=== PATIENT | male | born 1980 | race Caucasian/White ===

== ENCOUNTER 2017-09-10 10:14 | Emergency (ER) | payer MEDICAID ==
[2017-09-10 10:28] VITALS: BP 124/85
--- NOTE | 2017-09-10 10:52 | ED Physician Documentation ---
History of Present Illness - Stated complaint Stated Complaint: MED REFILL - Chief complaint Chief Complaint: General - History obtained from History obtained from: Patient - History of Present Illness Timing: How many days ago (4) - Additonal information Additional information: 37-year-old schizophrenic male has been incarcerated for approximately 3 years and he returns to the emergency department today after being released and having a 2 week supply of olanzapine. He ran out of this 4 days ago. He does not see a prescriber until the of this month and he is requesting a refill of his olanzapine to last until then. He does have trazodone to last and he does have Coumadin to last. He does not have any particular symptoms does not feel well off of his medication and would like to go back onto the olanzapine. He states that he sleeping well with the olanzapine as long as he takes his trazodone. Review of Systems Constitutional: denies: Fever Eyes: denies: Decreased vision Ears: denies: Ear pain Nose: denies: Congestion Throat: denies: Sore throat Cardiac: denies: Chest pain / pressure, Palpitations Respiratory: denies: Dyspnea, Cough GI: reports: Nausea, Vomiting. denies: Abdominal Pain : denies: Dysuria, Frequency Skin: denies: Rash PD PAST MEDICAL HISTORY - Past Medical History Past Medical History: Yes Cardiovascular: Deep vein thrombosis GI: Hepatitis Psych: Schizophrenia - Past Surgical History Past Surgical History: No - Present Medications Home Medications: Ambulatory Orders Medication Instructions Recorded Confirmed OLANZapine [Olanzapine] 20 mg PO QPM #24 tablet 09/10/17 Olanzapine [Zyprexa] 20 mg PO DAILY 09/10/17 09/10/17 Warfarin Sodium [Coumadin] 4 mg PO 09/10/17 traZODone [Desyrel] 150 mg PO HS 09/10/17 09/10/17 - Allergies Allergies/Adverse Reactions: Allergies Allergy/AdvReac Type Severity Reaction Status Date / Time No Known Drug Allergies Allergy Verified 10/28/14 11:57 - Social History Does the pt smoke?: Yes Smoking Status: Current every day smoker Does the pt drink ETOH?: No Does the pt have substance abuse?: Yes - Immunizations Immunizations are current?: No - POLST Patient has POLST: No PD ED PE NORMAL - Vitals Vital signs reviewed: Yes (tachy ) - General General: Alert and oriented X 3, No acute distress, Well developed/nourished - HEENT HEENT: Atraumatic, PERRL, EOMI - Respiratory Respiratory: No respiratory distress - Derm Derm: Normal color, Warm and dry, No rash - Extremities Extremities: No deformity, No edema - Neuro Neuro: Alert and oriented X 3, 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 We will prescribe the olanzapine to last him until he sees his prescriber in 24 days. - Sepsis Event Vital Signs: Vital Signs - 24 hr 09/10/17 10:25 Temperature 36.2 C L Heart Rate 108 H Respiratory 16 Rate Blood Pressure 124/85 H O2 Saturation 97 Oxygen O2 Source Room air Departure - Departure Disposition: 01 Home, Self Care Clinical Impression: Schizophrenia Qualifiers: Schizophrenia type: unspecified Qualified Code(s): F20.9 - Schizophrenia, unspecified Instructions: ED Schizophrenia General Follow-Up: [facility] [Provider Group] Prescriptions: OLANZapine [Olanzapine] 20 mg PO QPM #24 tablet
== END 2017-09-10 11:11 | disposition home or self-care (01) ==
LOC: ED 10:14
DX: Z76.0 Encounter for issue of repeat prescription (principal); F20.9 Schizophrenia, unspecified; Z86.718 Personal history of other venous thrombosis and embolism; Z79.01 Long term (current) use of anticoagulants; F17.200 Nicotine dependence, unspecified, uncomplicated; R00.0 Tachycardia, unspecified
CPT/HCPCS: 99283

== ENCOUNTER 2017-10-31 16:52 | Emergency (ER) | payer MEDICAID ==
--- NOTE | 2017-10-31 20:32 | ED Physician Documentation ---
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 No: Fever, Hemoptysis, Wheezing, Palpitations, Bilateral edema, Unilateral edema Recently seen: Not recently seen - Additional information Additional information: c/o 2 days of right-sided pleuritic chest pain with DILLARD. Stopped warfarin approximately 2 months ago; he says he ran out of the prescribed medication, but he also says he was instructed to stop the medication once he was out of that prescription. Review of Systems Constitutional: denies: Fever, Chills, Sweats Cardiac: reports: Chest pain / pressure. denies: Palpitations, Pedal edema, Calf pain Respiratory: reports: Dyspnea, Cough. denies: Hemoptysis, Wheezing GI: reports: Reviewed and negative Musculoskeletal: reports: Reviewed and negative PD PAST MEDICAL HISTORY - Past Medical History Past Medical History: Yes Cardiovascular: Pulmonary embolism Respiratory: Pneumonia Neuro: None Endocrine/Autoimmune: None GI: Hepatitis : None HEENT: Other Psych: Bipolar disorder, Schizophrenia Musculoskeletal: None Derm: None - Past Surgical History Past Surgical History: No - Present Medications Home Medications: Ambulatory Orders Medication Instructions Recorded Confirmed OLANZapine [Olanzapine] 20 mg PO QPM #24 tablet 09/10/17 Olanzapine [Zyprexa] 20 mg PO DAILY 09/10/17 09/10/17 Warfarin Sodium [Coumadin] 4 mg PO 09/10/17 traZODone [Desyrel] 150 mg PO HS 09/10/17 09/10/17 Rivaroxaban [Xarelto] 15 mg PO BID #42 tablet 10/31/17 Rivaroxaban [Xarelto] 20 mg PO DAILY #30 tablet 10/31/17 - Allergies Allergies/Adverse Reactions: Allergies Allergy/AdvReac Type Severity Reaction Status Date / Time shellfish derived Allergy Unknown Verified 10/31/17 17:11 - Social History Does the pt smoke?: Yes Smoking Status: Current every day smoker Does the pt drink ETOH?: No Does the pt have substance abuse?: Yes Substance Use and Type: Marijuana, Meth - Immunizations Immunizations are current?: Yes - POLST Patient has POLST: No PD ED PE NORMAL - Vitals Vital signs reviewed: Yes - General General: Alert and oriented X 3, No acute distress, Well developed/nourished - Neck Neck: Supple, no meningeal sign - Cardiac Cardiac: RRR, No murmur, No gallop, No rub - Respiratory Respiratory: No respiratory distress, Clear bilaterally - Abdomen Abdomen: Soft, Non tender - Derm Derm: Normal color, Warm and dry - Extremities Extremities: No edema - Neuro Neuro: Alert and oriented X 3 Results - Vitals Vitals: Vital Signs - 24 hr 10/31/17 10/31/17 10/31/17 17:05 22:17 22:24 Temperature 36.7 C 36.8 C Heart Rate 109 H 88 83 Respiratory 20 24 22 Rate Blood Pressure 109/82 H 107/71 107/71 O2 Saturation 98 96 100 11/01/17 00:13 Temperature Heart Rate 82 Respiratory 16 Rate Blood Pressure 100/73 O2 Saturation 100 Oxygen O2 Source Room air - EKG (time done) No standard instances Rate: Rate (enter#) (114), Tachy Rhythm: Sinus tachycardia [place]: Normal Intervals: Normal AR QRS: Normal Ischemia: Normal ST segments - Labs Labs: Laboratory Tests 10/31/17 10/31/17 10/31/17 20:37 20:37 20:37 WBC 5.7 RBC 5.04 Hgb 15.9 Hct 46.3 MCV 91.8 MCH 31.6 H MCHC 34.4 RDW 13.7 Plt Count 262 MPV 9.3 Neut # (Auto) 3.1 Lymph # (Auto) 1.8 [place] # (Auto) 0.6 Eos # (Auto) 0.1 Baso # (Auto) 0.0 Absolute Nucleated RBC 0.01 Nucleated RBC % 0.1 PT INR APTT Sodium 140 Potassium 3.7 Chloride 104 Carbon Dioxide 27 Anion Gap 9.0 BUN 14 Creatinine 0.9 Estimated GFR (MDRD) 94 Glucose 85 Calcium 9.3 Total Bilirubin 1.3 H AST 23 ALT 19 Alkaline Phosphatase 88 Troponin I < 0.04 Total Protein 7.5 Albumin 4.1 Globulin 3.4 Albumin/Globulin Ratio 1.2 Lipase 36 10/31/17 20:37 WBC RBC Hgb Hct MCV MCH MCHC RDW Plt Count MPV Neut # (Auto) Lymph # (Auto) [place] # (Auto) Eos # (Auto) Baso # (Auto) Absolute Nucleated RBC Nucleated RBC % PT 16.3 H INR 1.5 H APTT 27.2 Sodium Potassium Chloride Carbon Dioxide Anion Gap BUN Creatinine Estimated GFR (MDRD) Glucose Calcium Total Bilirubin AST ALT Alkaline Phosphatase Troponin I Total Protein Albumin Globulin Albumin/Globulin Ratio Lipase - Rads (name of study) CT chest (PE study) Radiology: Prelim report reviewed, See rad report PD MEDICAL DECISION MAKING - ED course Complexity details: reviewed old records, reviewed results, re-evaluated patient , considered differential, d/w patient ED course: ST on EKG, but NSR 80s bpm when I evaluated patient. He is in NAD and speaks in full sentences. As he was recently on warfarin, I gave dose of warfarin as well as SQ lovenox in ED. We subsequently discussed options for disposition, specifically admission vs. discharge. Patient prefers discharge home and he is appropriate for discharge at this time. His vital signs have been stable during ED stay and his PE severity index score puts him in lowest risk category. We then discussed anticoagulation options, and he prefers NOAC. I explained the risk includes lack of reversibility, and he expresses understanding of this but prefers an NOAC over warfarin. - Sepsis Event Vital Signs: Vital Signs - 24 hr 10/31/17 10/31/17 10/31/17 17:05 22:17 22:24 Temperature 36.7 C 36.8 C Heart Rate 109 H 88 83 Respiratory 20 24 22 Rate Blood Pressure 109/82 H 107/71 107/71 O2 Saturation 98 96 100 11/01/17 00:13 Temperature Heart Rate 82 Respiratory 16 Rate Blood Pressure 100/73 O2 Saturation 100 Oxygen O2 Source Room air Departure - Departure Disposition: 01 Home, Self Care Clinical Impression: Pulmonary embolism Condition: Good Instructions: Embolism Pulmonary Dc Follow-Up: [facility] [Provider Group] [facility] [Provider Group] Prescriptions: Rivaroxaban [Xarelto] 15 mg PO BID #42 tablet Rivaroxaban [Xarelto] 20 mg PO DAILY #30 tablet Comments: MAKE SURE TO TAKE THE XARELTO FOLLOWS: TAKE THE 15 MG DOSE TWICE PER DAY FOR 3 WEEKS, THEN TAKE THE 20MG DOSE ONCE PER DAY. Discharge Date/Time: 11/01/17 00:17
[2017-10-31 20:42] LABS: BASOPHILS % (AUTO) 0.7 %; EOSINOPHILS # (AUTO) 0.1 10^3/uL (0.0-0.7); EOSINOPHILS % (AUTO) 1.5 %; HGB - HEMOGLOBIN 15.9 g/dL (14.0-18.0); LYMPHOCYTES # (AUTO) 1.8 10^3/uL (1.5-3.5); LYMPHOCYTES % (AUTO) 32.3 %; MEAN CORPUSCULAR HEMOGLOBIN 31.6 pg (27.0-31.0); MEAN CORPUSCULAR HGB CONC 34.4 g/dL (32.0-36.0); MEAN CORPUSCULAR VOLUME 91.8 fL (80.0-94.0); MEAN PLATELET VOLUME 9.3 fL (7.4-11.4); MONOCYTES # (AUTO) 0.6 10^3/uL (0.0-1.0); MONOCYTES % (AUTO) 10.9 %; NEUTROPHILS # (AUTO) 3.1 10^3/uL (1.5-6.6); NEUTROPHILS % (AUTO) 54.6 %; PLT - PLATELET COUNT 262 10^3/uL (130-450); RED BLOOD COUNT 5.04 10^6/uL (4.70-6.10); RED CELL DISTRIBUTION WIDTH 13.7 % (12.0-15.0); WHITE BLOOD COUNT 5.7 x10^3/uL (4.8-10.8)
[2017-10-31 20:53] LABS: ALBUMIN 4.1 g/dL (3.2-5.5); ALBUMIN/GLOBULIN RATIO 1.2 (1.0-2.2); BILIRUBIN,TOTAL 1.3 mg/dL (0.2-1.0); CALCIUM 9.3 mg/dL (8.5-10.3); CREATININE 0.9 mg/dL (0.6-1.2); TOTAL PROTEIN 7.5 g/dL (6.7-8.2)
[2017-10-31] MEDS ORDERED: IOPAMIDOL-300 100 ML VIAL ONE (20:55)
[2017-10-31 20:56] LABS: INR 1.5 (0.8-1.2); PT - PROTHROMBIN TIME 16.3 secs (9.9-12.6)
[2017-10-31] MEDS ORDERED: IOPAMIDOL-300 100 ML VIAL IVP ONE (21:18)
[2017-10-31] MEDS ORDERED: ENOXAPARIN 80 MG/0.8 ML SYRINGE SUBQ STA (22:11)
[2017-10-31] MEDS ORDERED: WARFARIN 5 MG TABLET PO STA (22:12)
--- NOTE | 2017-10-31 22:16 | CT Report ---
Reason: right CP, dyspnea, h/o PE Procedure Date: 10/31/2017 Accession Number: [id number] / [id number] Procedure: CT - Chest Angio (PE) CPT Code: FULL RESULT: EXAM: CT ANGIOGRAM CHEST EXAM DATE: 10/31/2017 09:21 PM. CLINICAL HISTORY: Chest pain COMPARISON: None. TECHNIQUE: Routine helical imaging was performed through the chest in the pulmonary arterial phase. IV Contrast: ISOVUE 300 80mL. Reconstructions: Coronal 3-D MIP reconstructions.Sagittal and coronal. In accordance with CT protocol optimization, one or more of the following dose reduction techniques were utilized for this exam: automated exposure control, adjustment of mA and/or KV based on patient size, or use of iterative reconstructive technique. FINDINGS: Pulmonary Arteries: Diagnostic quality: Adequate through the segmental arteries. Study is positive for acute pulmonary embolism. Moderate clot burden, with greatest volume at the proximal segmental branch level. Some of the thrombus is eccentric which suggests subacute chronicity. RV/LV ratio is within normal limits. There is no flattening of the interventricular septum. There is some reflux of contrast into the IVC. Lungs/Pleura: The lungs demonstrate no evidence of consolidation or effusion. There is mild bilateral lower lobe bronchiectasis. No evidence of pneumothorax. Mediastinum: Heart size is within normal limits. No enlarged thoracic lymph nodes. Thoracic Aorta: There is no evidence of thoracic aortic dissection or aneurysm. Upper Abdomen: Unremarkable. Other: None. IMPRESSION: Study is positive for acute pulmonary embolism within lateral main pulmonary arteries and proximal segmental branch vessels. Moderate clot burden. No interventricular septal bowing is seen. SANDRAA The above findings were discussed with Bill Henderson by Dr. Nyasia Holbrook at 22:15 hrs on 10/31/17.
[2017-11-01 00:14] VITALS: BP 100/73
== END 2017-11-01 00:17 | disposition home or self-care (01) ==
LOC: ED 16:52
DX: I26.99 Other pulmonary embolism without acute cor pulmonale (principal); F17.200 Nicotine dependence, unspecified, uncomplicated
CPT/HCPCS: 36415; 71275; 80053; 83690; 84484; 85025; 85610; 85730; 93005; 96372; 99284; A9270; J1650; Q9967

== ENCOUNTER 2017-12-04 12:31 | Outpatient (CLI) | payer MEDICAID ==
[2017-12-04 13:21] LABS: BASOPHILS % (AUTO) 0.4 %; EOSINOPHILS # (AUTO) 0.2 10^3/uL (0.0-0.7); EOSINOPHILS % (AUTO) 1.7 %; HGB - HEMOGLOBIN 15.3 g/dL (14.0-18.0); LYMPHOCYTES # (AUTO) 2.1 10^3/uL (1.5-3.5); LYMPHOCYTES % (AUTO) 22.9 %; MEAN CORPUSCULAR HEMOGLOBIN 31.4 pg (27.0-31.0); MEAN CORPUSCULAR HGB CONC 34.7 g/dL (32.0-36.0); MEAN CORPUSCULAR VOLUME 90.4 fL (80.0-94.0); MEAN PLATELET VOLUME 9.2 fL (7.4-11.4); MONOCYTES # (AUTO) 0.6 10^3/uL (0.0-1.0); MONOCYTES % (AUTO) 6.3 %; NEUTROPHILS # (AUTO) 6.2 10^3/uL (1.5-6.6); NEUTROPHILS % (AUTO) 68.7 %; PLT - PLATELET COUNT 218 10^3/uL (130-450); RED BLOOD COUNT 4.88 10^6/uL (4.70-6.10); RED CELL DISTRIBUTION WIDTH 13.9 % (12.0-15.0)
[2017-12-04 13:42] LABS: ALBUMIN 3.7 g/dL (3.2-5.5); ALBUMIN/GLOBULIN RATIO 1.3 (1.0-2.2); ALKALINE PHOSPHATASE 75 IU/L (42-121); ALT ALANINE AMINOTRANSFERASE 37 IU/L (10-60); AST ASPARTATE AMINOTRANSFERASE 25 IU/L (10-42); BILIRUBIN,TOTAL 0.4 mg/dL (0.2-1.0); BUN - BLOOD UREA NITROGEN 6 mg/dL (6-20); CALCIUM 8.8 mg/dL (8.5-10.3); CARBON DIOXIDE - CO2 25 mmol/L (21-32); CHLORIDE 104 mmol/L (101-111); CHOLESTEROL 166 mg/dL; CREATININE 0.5 mg/dL (0.6-1.2); GFR - MDRD 186 (>89); GLUCOSE 106 mg/dL (70-100); HDL CHOLESTEROL 55 mg/dL; LDL CHOLESTEROL,CALCULATED 87 mg/dL; LDL/HDL RATIO 1.6 (<3.6); SODIUM 139 mmol/L (135-145); TOTAL PROTEIN 6.6 g/dL (6.7-8.2); VLDL CHOLESTEROL 24 mg/dL
[2017-12-04 14:17] LABS: THYROID STIMULATING HORMONE 0.49 uIU/mL (0.34-5.60)
[2017-12-04 14:28] LABS: FOLATE 14.17 ng/mL (5.90 - >24.8)
== END 2017-12-04 12:32 | disposition home or self-care (01) ==
LOC: LAB 12:31
PROVIDERS: ATTEND Nurse Practitioner
DX: I27.82 Chronic pulmonary embolism (principal); R53.83 Other fatigue; R03.0 Elevated blood-pressure reading, without diagnosis of hypertension; E55.9 Vitamin D deficiency, unspecified
CPT/HCPCS: 36415; 80053; 80061; 81240; 81599; 82306; 82607; 82746; 83721; 84443; 85025; 85240; 85303; 85305; 85306; 85613; 85730; 86146; 86147

== ENCOUNTER 2017-12-28 14:27 | Emergency (ER) | payer MEDICAID ==
[2017-12-28 14:34] VITALS: BP 123/75
[2017-12-28] MEDS ORDERED: SULFAMETH/TRIMETH DS 800/160 MG TABLET PO STA (14:51)
--- NOTE | 2017-12-28 14:55 | ED Physician Documentation ---
PD HPI HEENT - Stated complaint Stated Complaint: SOA, EAR PX, BLISTERS ON FEET, HANDS BURNING - Chief complaint Chief Complaint: Resp - History obtained from History obtained from: Patient - History of Present Illness Timing - onset: Other (37-year-old gentleman with history of PEs and psychosis on meds including Xarelto, 3 days of bilateral ear burning, cough and hands and feet burning. He also has a runny nose and a sore throat.) Review of Systems Constitutional: denies: Fever, Chills Ears: reports: Ear pain Nose: reports: Rhinorrhea / runny nose, Congestion Throat: reports: Sore throat Cardiac: denies: Chest pain / pressure, Palpitations Respiratory: reports: Cough. denies: Dyspnea PD PAST MEDICAL HISTORY - Past Medical History Cardiovascular: Pulmonary embolism Respiratory: Pneumonia Neuro: None Endocrine/Autoimmune: None GI: Hepatitis : None HEENT: Other Psych: Bipolar disorder, Schizophrenia Musculoskeletal: None Derm: None - Past Surgical History Past Surgical History: No - Present Medications Home Medications: Ambulatory Orders Medication Instructions Recorded Confirmed OLANZapine [Olanzapine] 20 mg PO QPM #24 tablet 09/10/17 Olanzapine [Zyprexa] 20 mg PO DAILY 09/10/17 09/10/17 Warfarin Sodium [Coumadin] 4 mg PO 09/10/17 traZODone [Desyrel] 150 mg PO HS 09/10/17 09/10/17 Rivaroxaban [Xarelto] 15 mg PO BID #42 tablet 10/31/17 Rivaroxaban [Xarelto] 20 mg PO DAILY #30 tablet 10/31/17 Sulfamethoxazole/Trimethoprim 1 each PO BID #20 tablet 12/28/17 [Sulfamethoxazole-Tmp Ds Tablet] - Allergies Allergies/Adverse Reactions: Allergies Allergy/AdvReac Type Severity Reaction Status Date / Time shellfish derived Allergy Unknown Verified 12/28/17 14:33 - Social History Does the pt smoke?: Yes Smoking Status: Current every day smoker Does the pt drink ETOH?: No Does the pt have substance abuse?: Yes - Immunizations Immunizations are current?: Yes - POLST Patient has POLST: No PD ED PE NORMAL - Vitals Vital signs reviewed: Yes - General General: Alert and oriented X 3, No acute distress - HEENT HEENT: Other (The TMs and oropharynx are normal, he does have crusted lesions on the tragus of both ears, left greater than right consistent with probably cutaneous staph. The left tragus was cultured during exam.) - Neck Neck: Supple, no meningeal sign, No bony TTP - Cardiac Cardiac: RRR, No murmur - Respiratory Respiratory: No respiratory distress, Clear bilaterally - Abdomen Abdomen: Non tender - Derm Derm: Other (He has some crusted over and scratched at lesions on the forearms and upper back.) - Neuro Neuro: Alert and oriented X 3, Normal speech Results - Vitals Vitals: Vital Signs - 24 hr 12/28/17 14:31 Temperature 36.8 C Heart Rate 103 H Respiratory 16 Rate Blood Pressure 123/75 O2 Saturation 99 Oxygen O2 Source Room air PD MEDICAL DECISION MAKING - ED course ED course: 37-year-old gent with history of schizophrenia and PEs under treatment with Xarelto presents with what looks like cutaneous staph, left tragus was cultured and he was put on Bactrim. Departure - Departure Disposition: 01 Home, Self Care Clinical Impression: Staph skin infection Condition: Good Record reviewed to determine appropriate education?: Yes Instructions: Imp[place]igo Prescriptions: Sulfamethoxazole/Trimethoprim [Sulfamethoxazole-Tmp Ds Tablet] 1 each PO BID #20 tablet Comments: Call your doctor to arrange a follow-up appointment, make the next available appointment. In the interim, return anytime if worse or if new symptoms develop. We are performing a wound culture, the results should be done in 48-72 hours. If antibiotic change is necessary we will call you. Return if worse in the meantime, especially if you develop increased pain, fevers, cannot keep down the medication. Otherwise follow-up with your physician in approximately 2-3 days.
== END 2017-12-28 15:02 | disposition home or self-care (01) ==
LOC: ED 14:27
DX: B95.8 Unspecified staphylococcus as the cause of diseases classified elsewhere (principal); L08.89 Other specified local infections of the skin and subcutaneous tissue; K75.9 Inflammatory liver disease, unspecified; Z86.711 Personal history of pulmonary embolism; F17.200 Nicotine dependence, unspecified, uncomplicated
CPT/HCPCS: 87070; 87205; 99283; A9270

== ENCOUNTER 2018-01-18 18:13 | Emergency (ER) | payer MEDICAID ==
[2018-01-18 18:54] LABS: BASOPHILS % (AUTO) 0.6 %; EOSINOPHILS # (AUTO) 0.1 10^3/uL (0.0-0.7); EOSINOPHILS % (AUTO) 1.6 %; HGB - HEMOGLOBIN 14.7 g/dL (14.0-18.0); LYMPHOCYTES # (AUTO) 1.6 10^3/uL (1.5-3.5); LYMPHOCYTES % (AUTO) 38.6 %; MEAN CORPUSCULAR HEMOGLOBIN 31.9 pg (27.0-31.0); MEAN CORPUSCULAR HGB CONC 34.1 g/dL (32.0-36.0); MEAN CORPUSCULAR VOLUME 93.6 fL (80.0-94.0); MEAN PLATELET VOLUME 9.3 fL (7.4-11.4); MONOCYTES # (AUTO) 0.4 10^3/uL (0.0-1.0); MONOCYTES % (AUTO) 10.2 %; PLT - PLATELET COUNT 202 10^3/uL (130-450); RED BLOOD COUNT 4.59 10^6/uL (4.70-6.10); RED CELL DISTRIBUTION WIDTH 13.9 % (12.0-15.0)
[2018-01-18 19:02] LABS: ACETAMINOPHEN < 10 ug/mL (10-30); ALBUMIN 4.2 g/dL (3.2-5.5); ALBUMIN/GLOBULIN RATIO 1.6 (1.0-2.2); ALKALINE PHOSPHATASE 60 IU/L (42-121); ALT ALANINE AMINOTRANSFERASE 21 IU/L (10-60); AST ASPARTATE AMINOTRANSFERASE 29 IU/L (10-42); BILIRUBIN,TOTAL 1.2 mg/dL (0.2-1.0); BUN - BLOOD UREA NITROGEN 11 mg/dL (6-20); CALCIUM 8.9 mg/dL (8.5-10.3); CARBON DIOXIDE - CO2 24 mmol/L (21-32); CHLORIDE 105 mmol/L (101-111); CREATININE 0.7 mg/dL (0.6-1.2); GFR - MDRD 126 (>89); GLUCOSE 142 mg/dL (70-100); LIPASE 33 U/L (22-51); SALICYLATE < 6.0 mg/dL; SODIUM 136 mmol/L (135-145); TOTAL PROTEIN 6.8 g/dL (6.7-8.2)
[2018-01-18 19:09] LABS: PLATELET ESTIMATE, MANUAL NORMAL (130-450,000) (NORMAL); PLATELET MORPHOLOGY 1+ GIANT PLATELETS (NORMAL); RBC MORPHOLOGY (MULTIPLE) NORMAL APPEARANCE (NORMAL)
[2018-01-18] MEDS ORDERED: OLANZapine ODT 5 MG TABLET TL ONE (19:36)
--- NOTE | 2018-01-18 19:38 | ED Physician Documentation ---
PD HPI MHE - Stated complaint Stated Complaint: MHE - Chief complaint Chief Complaint: MHE - History obtained from History obtained from: Patient, Family - History of Present Illness Primary symptom: Psychosis, Off meds Timing - onset: How many days ago (3) Pain level max: 0 Pain level now: 0 Similar symptoms before: Diagnosis (schizophrenia) Recently seen: Not recently seen - Additional information Additional information: Patient is a 37-year-old male who presents to the emergency department with increasing hallucinations and agitated behavior at home. He states that he last used amphetamines approximately 36 hours ago. Family states he is becoming more agitated. Stopped his Zyprexa approximately 3 days ago. Has been hospitalized in the past for schizophrenia. Review of Systems Unable to obtain: Uncooperative PD PAST MEDICAL HISTORY - Past Medical History Past Medical History: Yes Cardiovascular: Pulmonary embolism Respiratory: Pneumonia Neuro: None Endocrine/Autoimmune: None GI: Hepatitis : None HEENT: Other Psych: Bipolar disorder, Schizophrenia Musculoskeletal: None Derm: None - Past Surgical History Past Surgical History: No - Present Medications Home Medications: Ambulatory Orders Medication Instructions Recorded Confirmed OLANZapine [Olanzapine] 20 mg PO QPM #24 tablet 09/10/17 01/14/18 traZODone [Desyrel] 150 mg PO HS 09/10/17 01/14/18 Rivaroxaban [Xarelto] 20 mg PO DAILY #30 tablet 10/31/17 01/14/18 - Allergies Allergies/Adverse Reactions: Allergies Allergy/AdvReac Type Severity Reaction Status Date / Time shellfish derived Allergy Unknown Verified 01/18/18 18:29 - Social History Does the pt smoke?: Yes Smoking Status: Current every day smoker Does the pt drink ETOH?: No Does the pt have substance abuse?: Yes - Immunizations Immunizations are current?: Yes - POLST Patient has POLST: No PD ED PE NORMAL - Vitals Vital signs reviewed: Yes - General General: Other (alert, pacing, pressured speech) - HEENT HEENT: PERRL, Moist mucous membranes, Pharynx benign - Neck Neck: Supple, no meningeal sign - Cardiac Cardiac: RRR, Strong equal pulses - Respiratory Respiratory: No respiratory distress, Clear bilaterally - Abdomen Abdomen: Soft, Non tender, Non distended - Derm Derm: Warm and dry - Extremities Extremities: No edema - Neuro Neuro: Alert and oriented X 3 - Psych Psych: Normal mood, Normal affect Results - Vitals Vitals: Vital Signs - 24 hr 01/18/18 18:26 Temperature 36.4 C L Heart Rate 89 Respiratory 16 Rate Blood Pressure 128/83 H O2 Saturation 99 Oxygen O2 Source Room air - EKG (time done) 2109 Rate: Rate (enter#) (89) Rhythm: NSR [place]: Normal Intervals: Normal CA QRS: Normal Ischemia: Normal ST segments - Labs Labs: Laboratory Tests 01/18/18 01/18/18 01/18/18 18:44 18:44 18:44 WBC 4.0 L RBC 4.59 L Hgb 14.7 Hct 43.0 MCV 93.6 MCH 31.9 H MCHC 34.1 RDW 13.9 Plt Count 202 MPV 9.3 Neut # (Auto) 2.0 Lymph # (Auto) 1.6 [place] # (Auto) 0.4 Eos # (Auto) 0.1 Baso # (Auto) 0.0 Absolute Nucleated RBC 0.01 Nucleated RBC % 0.1 Manual Slide Review Indicated Platelet Estimate NORMAL (130-450,000) Platelet Morphology 1+ GIANT PLATELETS RBC Morph Micro Appear NORMAL APPEARANCE Sodium 136 Potassium 3.1 L Chloride 105 Carbon Dioxide 24 Anion Gap 7.0 BUN 11 Creatinine 0.7 Estimated GFR (MDRD) 126 Glucose 142 H Calcium 8.9 Total Bilirubin 1.2 H AST 29 ALT 21 Alkaline Phosphatase 60 Total Protein 6.8 Albumin 4.2 Globulin 2.6 Albumin/Globulin Ratio 1.6 Lipase 33 TSH 0.42 Urine Color Urine Clarity Urine pH Ur Specific [place] Urine Protein Urine Glucose (UA) Urine Ketones Urine Occult Blood Urine Nitrite Urine Bilirubin Urine Urobilinogen Ur Leukocyte Esterase Ur Microscopic Review Urine Culture Comments Salicylates < 6.0 Urine Opiates Screen Ur Oxycodone Screen Urine Methadone Screen Ur Propoxyphene Screen Acetaminophen < 10 L Ur Barbiturates Screen Ur Tricyclics Screen Ur Phencyclidine Scrn Ur Amphetamine Screen U Methamphetamines Scrn U Benzodiazepines Scrn Urine Cocaine Screen U Cannabinoids Screen Ethyl Alcohol < 5.0 01/18/18 20:44 WBC RBC Hgb Hct MCV MCH MCHC RDW Plt Count MPV Neut # (Auto) Lymph # (Auto) [place] # (Auto) Eos # (Auto) Baso # (Auto) Absolute Nucleated RBC Nucleated RBC % Manual Slide Review Platelet Estimate Platelet Morphology RBC Morph Micro Appear Sodium Potassium Chloride Carbon Dioxide Anion Gap BUN Creatinine Estimated GFR (MDRD) Glucose Calcium Total Bilirubin AST ALT Alkaline Phosphatase Total Protein Albumin Globulin Albumin/Globulin Ratio Lipase TSH Urine Color YELLOW Urine Clarity CLEAR Urine pH 8.0 H Ur Specific [place] 1.015 Urine Protein NEGATIVE Urine Glucose (UA) NEGATIVE Urine Ketones 15 H Urine Occult Blood NEGATIVE Urine Nitrite NEGATIVE Urine Bilirubin NEGATIVE Urine Urobilinogen 1 (NORMAL) Ur Leukocyte Esterase NEGATIVE Ur Microscopic Review NOT INDICATED Urine Culture Comments NOT INDICATED Salicylates Urine Opiates Screen NEGATIVE Ur Oxycodone Screen NEGATIVE Urine Methadone Screen NEGATIVE Ur Propoxyphene Screen NEGATIVE Acetaminophen Ur Barbiturates Screen NEGATIVE Ur Tricyclics Screen NEGATIVE Ur Phencyclidine Scrn NEGATIVE Ur Amphetamine Screen POSITIVE H U Methamphetamines Scrn POSITIVE H U Benzodiazepines Scrn NEGATIVE Urine Cocaine Screen NEGATIVE U Cannabinoids Screen POSITIVE H Ethyl Alcohol PD MEDICAL DECISION MAKING - ED course Complexity details: reviewed results, re-evaluated patient, considered differential, d/w patient, d/w family ED course: Patient is a 37-year-old schizophrenic male who appears decompensated today. Having active hallucinations. There are young children at the house where he is staying, family is concerned that he may injure them. He states he does not feel homicidal or suicidal, but is not well kept and does appear to have difficulty keeping his thoughts in line. He is having significant internal stimuli and pacing around the room. He is continually trying to leave the emergency department. Family is redirecting him. They state that his last hospitalization was approximately 3 years ago. Patient is medically clear for psychiatric care. [facility] was contacted and the [facility] dispatched. [facility]. This document was made in part using voice recognition software. While efforts are made to proofread this document, sound alike and grammatical errors may occur. Patient did take Zyprexa while in the emergency department Departure - Departure Clinical Impression: Methamphetamine abuse, Marijuana use Schizophrenia Qualifiers: Schizophrenia type: unspecified Qualified Code(s): F20.9 - Schizophrenia, unspecified Condition: Stable
[2018-01-18 20:47] LABS: MUDS CUTOFF CONCENTRATIONS CUTOFF CONC BELOW:
[2018-01-18 20:49] LABS: BILIRUBIN,URINE NEGATIVE (NEGATIVE); GLUCOSE, URINE (UA) NEGATIVE (NEGATIVE); KETONES,URINE (UA) 15 mg/dL (NEGATIVE); LEUKOCYTE ESTERASE, URINE NEGATIVE (NEGATIVE); NITRITE,URINE NEGATIVE (NEGATIVE); OCCULT BLOOD,URINE NEGATIVE (NEGATIVE); PROTEIN,URINE NEGATIVE (NEGATIVE); UROBILINOGEN,URINE 1 (NORMAL) E.U./dL (NORMAL)
[2018-01-18 20:55] LABS: CLARITY,URINE CLEAR (CLEAR)
[2018-01-18 20:58] LABS: COCAINE SCREEN URINE NEGATIVE (NEGATIVE)
[2018-01-18 20:59] LABS: AMPHETAMINE SCREEN,URINE POSITIVE (NEGATIVE); BENZODIAZEPINES SCREEN, URINE NEGATIVE (NEGATIVE); METHADONE SCREEN, URINE NEGATIVE (NEGATIVE); METHAMPHETAMINES SCREEN, URINE POSITIVE (NEGATIVE); OPIATE SCREEN, URINE NEGATIVE (NEGATIVE); OXYCODONE SCREEN, URINE NEGATIVE (NEGATIVE); PROPOXYPHENE SCREEN, URINE NEGATIVE (NEGATIVE); TRICYCLIC ANTIDEPRESSANT,URINE NEGATIVE (NEGATIVE)
[2018-01-19] MEDS ORDERED: POTASSIUM BICARB 25 MEQ TABLET PO STA (03:27)
--- NOTE | 2018-01-19 05:14 | ED Physician Documentation ---
PD HPI MHE - Stated complaint Stated Complaint: MHE - Chief complaint Chief Complaint: MHE - History of Present Illness Contributing factors: Off meds Similar symptoms before: Diagnosis (schizophrenia) Recently seen: Emergency Dept (one month ago for skin infection) PD PAST MEDICAL HISTORY - Past Medical History Past Medical History: Yes Cardiovascular: Pulmonary embolism Respiratory: Pneumonia Neuro: None Endocrine/Autoimmune: None GI: Hepatitis : None HEENT: Other Psych: Bipolar disorder, Schizophrenia Musculoskeletal: None Derm: None - Past Surgical History Past Surgical History: No - Present Medications Home Medications: Ambulatory Orders Medication Instructions Recorded Confirmed OLANZapine [Olanzapine] 20 mg PO QPM #24 tablet 09/10/17 01/14/18 traZODone [Desyrel] 150 mg PO HS 09/10/17 01/14/18 Rivaroxaban [Xarelto] 20 mg PO DAILY #30 tablet 10/31/17 01/14/18 - Allergies Allergies/Adverse Reactions: Allergies Allergy/AdvReac Type Severity Reaction Status Date / Time shellfish derived Allergy Unknown Verified 01/18/18 18:29 - Social History Does the pt smoke?: Yes Smoking Status: Current every day smoker Does the pt drink ETOH?: No Does the pt have substance abuse?: Yes - Immunizations Immunizations are current?: Yes - POLST Patient has POLST: No Results - Vitals Vitals: Vital Signs - 24 hr 01/18/18 01/18/18 18:26 22:53 Temperature 36.4 C L 36.4 C L Heart Rate 89 101 H Respiratory 16 18 Rate Blood Pressure 128/83 H 113/65 O2 Saturation 99 97 Oxygen O2 Source Room air - EKG (time done) 0438 Rate: Rate (enter#) (66) Ischemia: Non specific changes Compare to prior EKG: Changed from prior EKG (SPT 01-18-18 the QTc has changed from 476 ot 410) Computer interpretation: Agree with computer - Labs Labs: Laboratory Tests 01/18/18 01/18/18 01/18/18 18:44 18:44 18:44 WBC 4.0 L RBC 4.59 L Hgb 14.7 Hct 43.0 MCV 93.6 MCH 31.9 H MCHC 34.1 RDW 13.9 Plt Count 202 MPV 9.3 Neut # (Auto) 2.0 Lymph # (Auto) 1.6 [place] # (Auto) 0.4 Eos # (Auto) 0.1 Baso # (Auto) 0.0 Absolute Nucleated RBC 0.01 Nucleated RBC % 0.1 Manual Slide Review Indicated Platelet Estimate NORMAL (130-450,000) Platelet Morphology 1+ GIANT PLATELETS RBC Morph Micro Appear NORMAL APPEARANCE Sodium 136 Potassium 3.1 L Chloride 105 Carbon Dioxide 24 Anion Gap 7.0 BUN 11 Creatinine 0.7 Estimated GFR (MDRD) 126 Glucose 142 H Calcium 8.9 Total Bilirubin 1.2 H AST 29 ALT 21 Alkaline Phosphatase 60 Total Protein 6.8 Albumin 4.2 Globulin 2.6 Albumin/Globulin Ratio 1.6 Lipase 33 TSH 0.42 Urine Color Urine Clarity Urine pH Ur Specific [place] Urine Protein Urine Glucose (UA) Urine Ketones Urine Occult Blood Urine Nitrite Urine Bilirubin Urine Urobilinogen Ur Leukocyte Esterase Ur Microscopic Review Urine Culture Comments Salicylates < 6.0 Urine Opiates Screen Ur Oxycodone Screen Urine Methadone Screen Ur Propoxyphene Screen Acetaminophen < 10 L Ur Barbiturates Screen Ur Tricyclics Screen Ur Phencyclidine Scrn Ur Amphetamine Screen U Methamphetamines Scrn U Benzodiazepines Scrn Urine Cocaine Screen U Cannabinoids Screen Ethyl Alcohol < 5.0 01/18/18 20:44 WBC RBC Hgb Hct MCV MCH MCHC RDW Plt Count MPV Neut # (Auto) Lymph # (Auto) [place] # (Auto) Eos # (Auto) Baso # (Auto) Absolute Nucleated RBC Nucleated RBC % Manual Slide Review Platelet Estimate Platelet Morphology RBC Morph Micro Appear Sodium Potassium Chloride Carbon Dioxide Anion Gap BUN Creatinine Estimated GFR (MDRD) Glucose Calcium Total Bilirubin AST ALT Alkaline Phosphatase Total Protein Albumin Globulin Albumin/Globulin Ratio Lipase TSH Urine Color YELLOW Urine Clarity CLEAR Urine pH 8.0 H Ur Specific [place] 1.015 Urine Protein NEGATIVE Urine Glucose (UA) NEGATIVE Urine Ketones 15 H Urine Occult Blood NEGATIVE Urine Nitrite NEGATIVE Urine Bilirubin NEGATIVE Urine Urobilinogen 1 (NORMAL) Ur Leukocyte Esterase NEGATIVE Ur Microscopic Review NOT INDICATED Urine Culture Comments NOT INDICATED Salicylates Urine Opiates Screen NEGATIVE Ur Oxycodone Screen NEGATIVE Urine Methadone Screen NEGATIVE Ur Propoxyphene Screen NEGATIVE Acetaminophen Ur Barbiturates Screen NEGATIVE Ur Tricyclics Screen NEGATIVE Ur Phencyclidine Scrn NEGATIVE Ur Amphetamine Screen POSITIVE H U Methamphetamines Scrn POSITIVE H U Benzodiazepines Scrn NEGATIVE Urine Cocaine Screen NEGATIVE U Cannabinoids Screen POSITIVE H Ethyl Alcohol PD MEDICAL DECISION MAKING - ED course Complexity details: reviewed old records, reviewed results, considered differential ED course: 37 y/o schizophrenic male well known to the ED has decompensated after being off of his zyprexa for 3 days. He is not able to care for himself and required the assistance of his mother to get dressed today. He is evaluated in the ED by Dr. Mederos and the DCR is consulted, comes to the ED and detains the patient to [facility]. He is administered zyprexa this morning and he is administered potassium bicarbonate 50mEq. Dr. Banda is accepting. Departure - Departure Disposition: [facility] H[facility]/Unit DC/Xfer Clinical Impression: Methamphetamine abuse, Marijuana use Schizophrenia Qualifiers: Schizophrenia type: unspecified Qualified Code(s): F20.9 - Schizophrenia, unspecified Condition: Stable
--- NOTE | 2018-01-19 09:25 | ED Physician Documentation ---
ED Addendum - Addendum Addendum: 01/19/18 09:24 COBRA forms not complete - chart accessed to complete paperwork for transport
[2018-01-19 09:47] VITALS: BP 116/78
== END 2018-01-19 09:57 ==
LOC: ED 18:13
DX: F15.10 Other stimulant abuse, uncomplicated (principal); F20.9 Schizophrenia, unspecified; T43.596A Underdosing of other antipsychotics and neuroleptics, initial encounter; F17.200 Nicotine dependence, unspecified, uncomplicated
CPT/HCPCS: 36415; 80053; 80306; 80307; 80320; 80329; 81003; 83690; 84443; 85025; 93005; 99284; 99285; A9270; 81001; 87086

== ENCOUNTER 2018-03-20 17:40 | Emergency (ER) | payer MEDICAID ==
[2018-03-20 17:58] VITALS: BP 125/79
== END 2018-03-20 19:25 | disposition left against medical advice (07) ==
LOC: ED 17:40
DX: Z76.0 Encounter for issue of repeat prescription (principal); Z53.21 Procedure and treatment not carried out due to patient leaving prior to being seen by health care provider

== ENCOUNTER 2018-04-30 11:39 | Emergency (ER) | payer MEDICAID ==
[2018-04-30 11:52] VITALS: BP 122/83
[2018-04-30 12:17] LABS: BASOPHILS % (AUTO) 0.5 %; EOSINOPHILS # (AUTO) 0.2 10^3/uL (0.0-0.7); EOSINOPHILS % (AUTO) 2.6 %; HGB - HEMOGLOBIN 14.9 g/dL (14.0-18.0); LYMPHOCYTES # (AUTO) 1.4 10^3/uL (1.5-3.5); LYMPHOCYTES % (AUTO) 22.6 %; MEAN CORPUSCULAR HEMOGLOBIN 32.2 pg (27.0-31.0); MEAN PLATELET VOLUME 8.4 fL (7.4-11.4); MONOCYTES # (AUTO) 0.6 10^3/uL (0.0-1.0); MONOCYTES % (AUTO) 9.5 %; NEUTROPHILS % (AUTO) 64.8 %; PLT - PLATELET COUNT 212 10^3/uL (130-450); RED BLOOD COUNT 4.61 10^6/uL (4.70-6.10); WHITE BLOOD COUNT 6.2 x10^3/uL (4.8-10.8)
[2018-04-30 12:31] LABS: ACETAMINOPHEN < 10 ug/mL (10-30); ALBUMIN 4.3 g/dL (3.2-5.5); ALBUMIN/GLOBULIN RATIO 1.5 (1.0-2.2); ALKALINE PHOSPHATASE 63 IU/L (42-121); ALT ALANINE AMINOTRANSFERASE 18 IU/L (10-60); AST ASPARTATE AMINOTRANSFERASE 23 IU/L (10-42); BILIRUBIN,TOTAL 1.6 mg/dL (0.2-1.0); BUN - BLOOD UREA NITROGEN 15 mg/dL (6-20); CALCIUM 9.1 mg/dL (8.5-10.3); CARBON DIOXIDE - CO2 25 mmol/L (21-32); CHLORIDE 100 mmol/L (101-111); CREATININE 0.7 mg/dL (0.6-1.2); GFR - MDRD 126 (>89); GLUCOSE 85 mg/dL (70-100); LIPASE 30 U/L (22-51); SALICYLATE < 6.0 mg/dL; SODIUM 136 mmol/L (135-145); TOTAL PROTEIN 7.1 g/dL (6.7-8.2)
[2018-04-30] MEDS ORDERED: LORazepam 0.5 MG TABLET PO STA (12:56)
--- NOTE | 2018-04-30 13:00 | ED Physician Documentation ---
PD HPI MHE - Stated complaint Stated Complaint: MHE - Chief complaint Chief Complaint: MHE - History obtained from History obtained from: Patient - History of Present Illness Primary symptom: Other (This is a 37-year-old gentleman with history of schizophrenia and pulmonary emboli on Xarelto who is been using methamphetamines, both smoking and injecting. He feels like he is a danger to himself and is hallucinating. I guess he called [place] prior to arrival and they have a bed but needed him to come here for medical clearance prior to acceptance.) Review of Systems Ten Systems: 10 systems reviewed and negative Constitutional: denies: Fever, Chills Eyes: reports: Reviewed and negative Cardiac: reports: Reviewed and negative PD PAST MEDICAL HISTORY - Past Medical History Past Medical History: Yes Cardiovascular: Pulmonary embolism Respiratory: Pneumonia Neuro: None Endocrine/Autoimmune: None GI: Hepatitis : None HEENT: Other Psych: Bipolar disorder, Schizophrenia Musculoskeletal: None Derm: None - Past Surgical History Past Surgical History: No - Present Medications Home Medications: Ambulatory Orders Medication Instructions Recorded Confirmed traZODone [Desyrel] 150 mg PO HS 09/10/17 04/30/18 Rivaroxaban [Xarelto] 20 mg PO DAILY #30 tablet 10/31/17 04/30/18 Risperidone [Risperidone Odt] 3 mg PO DAILY 04/30/18 04/30/18 - Allergies Allergies/Adverse Reactions: Allergies Allergy/AdvReac Type Severity Reaction Status Date / Time shellfish derived Allergy Unknown Verified 04/30/18 11:53 - Social History Does the pt smoke?: Yes Smoking Status: Current every day smoker Does the pt drink ETOH?: No Does the pt have substance abuse?: Yes Substance Use and Type: Meth - Family History Family history: reports: Non contributory - Immunizations Immunizations are current?: Yes - POLST Patient has POLST: No PD ED PE NORMAL - Vitals Vital signs reviewed: Yes - General General: Other (He appears to be responding to external stimuli and is slightly agitated and tangential.) - HEENT HEENT: PERRL, EOMI - Neck Neck: Supple, no meningeal sign, No bony TTP - Cardiac Cardiac: RRR, No murmur - Respiratory Respiratory: No respiratory distress, Clear bilaterally - Abdomen Abdomen: Soft, Non tender - Back Back: No CVA TTP, No spinal TTP - Extremities Extremities: No edema, No calf tenderness / cord - Neuro Neuro: Alert and oriented X 3, Normal speech Results - Vitals Vitals: Vital Signs - 24 hr 04/30/18 11:48 Temperature 36.0 C L Heart Rate 107 H Respiratory 14 Rate Blood Pressure 122/83 H O2 Saturation 99 Oxygen O2 Source Room air - Labs Labs: Laboratory Tests 04/30/18 04/30/18 04/30/18 12:09 12:09 12:09 WBC 6.2 RBC 4.61 L Hgb 14.9 Hct 42.4 MCV 92.0 MCH 32.2 H MCHC 35.0 RDW 13.0 Plt Count 212 MPV 8.4 Neut # (Auto) 4.0 Lymph # (Auto) 1.4 L [place] # (Auto) 0.6 Eos # (Auto) 0.2 Baso # (Auto) 0.0 Absolute Nucleated RBC 0.00 Nucleated RBC % 0.1 Sodium 136 Potassium 3.3 L Chloride 100 L Carbon Dioxide 25 Anion Gap 11.0 BUN 15 Creatinine 0.7 Estimated GFR (MDRD) 126 Glucose 85 Calcium 9.1 Total Bilirubin 1.6 H AST 23 ALT 18 Alkaline Phosphatase 63 Total Protein 7.1 Albumin 4.3 Globulin 2.8 Albumin/Globulin Ratio 1.5 Lipase 30 TSH 1.16 Salicylates < 6.0 Acetaminophen < 10 L Ethyl Alcohol < 5.0 PD MEDICAL DECISION MAKING - ED course ED course: This is a 37-year-old gentleman who presents with anxiety and hallucinations in the setting of underlying schizophrenia and methamphetamine abuse. He was pending social work consultation and I was notified that he had ambulated out of the emergency department. Departure - Departure Disposition: ED [place] Clinical Impression: Methamphetamine abuse Discharge Date/Time: 04/30/18 16:31
== END 2018-04-30 16:31 | disposition left against medical advice (07) ==
LOC: ED 11:39
DX: F15.90 Other stimulant use, unspecified, uncomplicated (principal); F17.200 Nicotine dependence, unspecified, uncomplicated; Z86.711 Personal history of pulmonary embolism; Z79.01 Long term (current) use of anticoagulants
CPT/HCPCS: 36415; 80053; 80306; 80307; 80320; 80329; 81001; 81003; 83690; 84443; 85025; 87086; 99282; 99283

== ENCOUNTER 2018-05-06 14:56 | Emergency (ER) | payer MEDICAID ==
[2018-05-06 15:07] VITALS: BP 111/70
--- NOTE | 2018-05-06 15:31 | ED Physician Documentation ---
PD HPI URI - Stated complaint Stated Complaint: THROAT PX - Chief complaint Chief Complaint: Heent - History obtained from History obtained from: Patient - History of Present Illness Timing - onset: Other (Sick for 4 days with runny nose, sore throat, cough with mild clear production and low-grade fevers up to 99.) Review of Systems Constitutional: reports: Chills, Fatigue Ears: denies: Ear pain Nose: reports: Rhinorrhea / runny nose, Congestion. denies: Sinus pressure / pain Throat: reports: Sore throat. denies: Oral lesions / sores Respiratory: reports: Cough. denies: Dyspnea PD PAST MEDICAL HISTORY - Past Medical History Cardiovascular: Pulmonary embolism Respiratory: Pneumonia Neuro: None Endocrine/Autoimmune: None GI: Hepatitis : None HEENT: Other Psych: Bipolar disorder, Schizophrenia Musculoskeletal: None Derm: None - Past Surgical History Past Surgical History: No - Present Medications Home Medications: Ambulatory Orders Medication Instructions Recorded Confirmed traZODone [Desyrel] 150 mg PO HS 09/10/17 04/30/18 Rivaroxaban [Xarelto] 20 mg PO DAILY #30 tablet 10/31/17 04/30/18 Risperidone [Risperidone Odt] 3 mg PO DAILY 04/30/18 04/30/18 Guaifenesin/Pseudoephedrne HCl 1 each PO BID PRN #20 tab.er.12h 05/06/18 [Mucinex D ER 600-60 mg Tablet] Ibuprofen [Motrin] 800 mg PO Q8H PRN #30 tablet 05/06/18 - Allergies Allergies/Adverse Reactions: Allergies Allergy/AdvReac Type Severity Reaction Status Date / Time shellfish derived Allergy Unknown Verified 04/30/18 11:53 - Social History Does the pt smoke?: Yes Smoking Status: Current every day smoker Does the pt drink ETOH?: No Does the pt have substance abuse?: Yes - Immunizations Immunizations are current?: Yes - POLST Patient has POLST: No PD ED PE NORMAL - Vitals Vital signs reviewed: Yes - General General: Alert and oriented X 3, No acute distress - HEENT HEENT: Other (TMs normal. Red tonsils without swelling or exudate. No adenopathy.) - Neck Neck: Supple, no meningeal sign - Cardiac Cardiac: RRR, No murmur - Respiratory Respiratory: No respiratory distress, Clear bilaterally - Derm Derm: No rash - Neuro Neuro: Alert and oriented X 3, Normal speech Results - Vitals Vitals: Vital Signs - 24 hr 05/06/18 15:04 Temperature 36.5 C Heart Rate 87 Respiratory 18 Rate Blood Pressure 111/70 O2 Saturation 98 Oxygen O2 Source Room air - Labs Labs: Laboratory Tests 05/06/18 15:12 Group A Strep Rapid Negative Departure - Departure Disposition: Home, Self Care Clinical Impression: Viral URI Condition: Good Record reviewed to determine appropriate education?: Yes Instructions: ED Viral Syndrome Prescriptions: Guaifenesin/Pseudoephedrne HCl [Mucinex D ER 600-60 mg Tablet] 1 each PO BID PRN #20 tab.er.12h PRN Reason: congestion Ibuprofen [Motrin] 800 mg PO Q8H PRN #30 tablet PRN Reason: PAIN &/OR FEVER Comments: Call your doctor to arrange a follow-up appointment, make the next available appointment. In the interim, return anytime if worse or if new symptoms develop.
== END 2018-05-06 15:56 | disposition home or self-care (01) ==
LOC: ED 14:56
DX: J06.9 Acute upper respiratory infection, unspecified (principal); J02.9 Acute pharyngitis, unspecified; Z86.711 Personal history of pulmonary embolism; Z79.01 Long term (current) use of anticoagulants; F17.200 Nicotine dependence, unspecified, uncomplicated
CPT/HCPCS: 87070; 87430; 99283

== ENCOUNTER 2018-06-21 17:31 | Emergency (ER) | payer MEDICAID ==
[2018-06-21 17:36] VITALS: BP 124/82
[2018-06-21] MEDS ORDERED: SODIUM CHLORIDE 0.9% 1,000 ML IV ONE (17:40)
[2018-06-21] MEDS ORDERED: LORazepam 2 MG/ML VIAL IVP STA (17:40)
--- NOTE | 2018-06-21 17:43 | ED Physician Documentation ---
History of Present Illness - Stated complaint Stated Complaint: BURN ON FACE/SMOKED LACED WEED - Chief complaint Chief Complaint: General - History obtained from History obtained from: Patient - History of Present Illness Timing: Today (This is a 38-year-old gentleman with history of schizophrenia and pulmonary emboli on Xarelto started using methamphetamines and now feels paranoid and is having auditory and visual hallucinations without suicidal ideation or homicidal ideation.) Review of Systems Ten Systems: 10 systems reviewed and negative Constitutional: reports: Reviewed and negative Throat: reports: Reviewed and negative Cardiac: reports: Reviewed and negative Respiratory: reports: Reviewed and negative PD PAST MEDICAL HISTORY - Past Medical History Cardiovascular: Pulmonary embolism Respiratory: Pneumonia Neuro: None Endocrine/Autoimmune: None GI: Hepatitis : None HEENT: Other Psych: Bipolar disorder, Schizophrenia Musculoskeletal: None Derm: None - Past Surgical History Past Surgical History: No - Present Medications Home Medications: Ambulatory Orders Medication Instructions Recorded Confirmed traZODone [Desyrel] 150 mg PO HS 09/10/17 04/30/18 Rivaroxaban [Xarelto] 20 mg PO DAILY #30 tablet 10/31/17 04/30/18 Risperidone [Risperidone Odt] 3 mg PO DAILY 04/30/18 04/30/18 - Allergies Allergies/Adverse Reactions: Allergies Allergy/AdvReac Type Severity Reaction Status Date / Time shellfish derived Allergy Unknown Verified 06/21/18 17:36 - Social History Does the pt smoke?: Yes Smoking Status: Current every day smoker Does the pt drink ETOH?: No Does the pt have substance abuse?: Yes - Immunizations Immunizations are current?: Yes - POLST Patient has POLST: No PD ED PE NORMAL - Vitals Vital signs reviewed: Yes - General General: Alert and oriented X 3, Other (He is hypervigilant and intense) - HEENT HEENT: PERRL, EOMI - Neck Neck: Supple, no meningeal sign, No bony TTP - Cardiac Cardiac: Other (Tachycardic and regular without murmur) - Respiratory Respiratory: No respiratory distress, Clear bilaterally - Abdomen Abdomen: Soft, Non tender - Back Back: No CVA TTP, No spinal TTP - Derm Derm: Other (A lot of picked at skin lesions but no obvious infections.) - Neuro Neuro: Alert and oriented X 3, Normal speech Results - Vitals Vitals: Vital Signs - 24 hr 06/21/18 06/21/18 17:34 19:49 Temperature 36.8 C Heart Rate 120 H 77 Respiratory 20 18 Rate Blood Pressure 124/82 H O2 Saturation 98 99 Oxygen O2 Source Room air - Labs Labs: Laboratory Tests 06/21/18 06/21/18 06/21/18 17:55 17:55 21:20 WBC 5.0 RBC 4.78 Hgb 15.0 Hct 44.2 MCV 92.5 MCH 31.3 H MCHC 33.8 RDW 13.5 Plt Count 214 MPV 8.4 Neut # (Auto) 2.9 Lymph # (Auto) 1.6 [place] # (Auto) 0.4 Eos # (Auto) 0.1 Baso # (Auto) 0.0 Absolute Nucleated RBC 0.00 Nucleated RBC % 0.1 Sodium 139 Potassium 3.5 Chloride 104 Carbon Dioxide 25 Anion Gap 10.0 BUN 18 Creatinine 0.6 Estimated GFR (MDRD) 150 Glucose 123 H Calcium 9.4 Total Bilirubin 0.7 AST 18 ALT 14 Alkaline Phosphatase 61 Total Creatine Kinase 111 Total Protein 7.4 Albumin 4.3 Globulin 3.1 Albumin/Globulin Ratio 1.4 Lipase 28 Urine Color YELLOW Urine Clarity CLEAR Urine pH 6.0 Ur Specific [place] >=1.030 H Urine Protein NEGATIVE Urine Glucose (UA) NEGATIVE Urine Ketones NEGATIVE Urine Occult Blood NEGATIVE Urine Nitrite NEGATIVE Urine Bilirubin NEGATIVE Urine Urobilinogen 0.2 (NORMAL) Ur Leukocyte Esterase NEGATIVE Ur Microscopic Review NOT INDICATED Urine Culture Comments NOT INDICATED Salicylates < 6.0 Urine Opiates Screen NEGATIVE Ur Oxycodone Screen NEGATIVE Urine Methadone Screen NEGATIVE Ur Propoxyphene Screen NEGATIVE Acetaminophen < 10 L Ur Barbiturates Screen NEGATIVE Ur Tricyclics Screen NEGATIVE Ur Phencyclidine Scrn NEGATIVE Ur Amphetamine Screen POSITIVE H U Methamphetamines Scrn POSITIVE H U Benzodiazepines Scrn POSITIVE H Urine Cocaine Screen POSITIVE H U Cannabinoids Screen POSITIVE H Ethyl Alcohol < 5.0 PD MEDICAL DECISION MAKING - ED course ED course: This is a 38-year-old gentleman with history of schizophrenia and drug abuse who presents with exacerbations of same after using methamphetamines. He is cooperative but slightly psychotic. He was administered IV fluids and a milligram of Ativan after which he became quite somnolent for some time. Social work was consulted, he does want to consider placement, but it will be the morning before they can make any forward motion on that. Departure - Departure Disposition: Home, Self Care Clinical Impression: Substance abuse Schizophrenia Qualifiers: Schizophrenia type: unspecified Qualified Code(s): F20.9 - Schizophrenia, unspecified Condition: Stable Comments: Stay well-hydrated. Avoid recreational drugs. Take your home prescriptions if you have thumb. Return as needed. You are welcome to stay until the morning until forensic social worker is here and able to help you search for placement for substance abuse and mental health. You are welcome to leave if you prefer. Discharge Date/Time: 06/22/18 03:46
[2018-06-21 18:03] LABS: BASOPHILS % (AUTO) 0.4 %; EOSINOPHILS # (AUTO) 0.1 10^3/uL (0.0-0.7); EOSINOPHILS % (AUTO) 2.5 %; LYMPHOCYTES # (AUTO) 1.6 10^3/uL (1.5-3.5); LYMPHOCYTES % (AUTO) 31.5 %; MEAN CORPUSCULAR HEMOGLOBIN 31.3 pg (27.0-31.0); MEAN CORPUSCULAR HGB CONC 33.8 g/dL (32.0-36.0); MEAN CORPUSCULAR VOLUME 92.5 fL (80.0-94.0); MEAN PLATELET VOLUME 8.4 fL (7.4-11.4); MONOCYTES # (AUTO) 0.4 10^3/uL (0.0-1.0); MONOCYTES % (AUTO) 7.6 %; NEUTROPHILS # (AUTO) 2.9 10^3/uL (1.5-6.6); PLT - PLATELET COUNT 214 10^3/uL (130-450); RED BLOOD COUNT 4.78 10^6/uL (4.70-6.10); RED CELL DISTRIBUTION WIDTH 13.5 % (12.0-15.0)
[2018-06-21 18:17] LABS: ACETAMINOPHEN < 10 ug/mL (10-30); ALBUMIN 4.3 g/dL (3.2-5.5); ALBUMIN/GLOBULIN RATIO 1.4 (1.0-2.2); ALKALINE PHOSPHATASE 61 IU/L (42-121); ALT ALANINE AMINOTRANSFERASE 14 IU/L (10-60); AST ASPARTATE AMINOTRANSFERASE 18 IU/L (10-42); BILIRUBIN,TOTAL 0.7 mg/dL (0.2-1.0); BUN - BLOOD UREA NITROGEN 18 mg/dL (6-20); CALCIUM 9.4 mg/dL (8.5-10.3); CARBON DIOXIDE - CO2 25 mmol/L (21-32); CHLORIDE 104 mmol/L (101-111); CK- CREATINE KINASE 111 IU/L (22-269); CREATININE 0.6 mg/dL (0.6-1.2); GFR - MDRD 150 (>89); GLUCOSE 123 mg/dL (70-100); LIPASE 28 U/L (22-51); SALICYLATE < 6.0 mg/dL; SODIUM 139 mmol/L (135-145); TOTAL PROTEIN 7.4 g/dL (6.7-8.2)
[2018-06-21 21:29] LABS: BILIRUBIN,URINE NEGATIVE (NEGATIVE); GLUCOSE, URINE (UA) NEGATIVE (NEGATIVE); KETONES,URINE (UA) NEGATIVE (NEGATIVE); LEUKOCYTE ESTERASE, URINE NEGATIVE (NEGATIVE); MUDS CUTOFF CONCENTRATIONS CUTOFF CONC BELOW:; NITRITE,URINE NEGATIVE (NEGATIVE); OCCULT BLOOD,URINE NEGATIVE (NEGATIVE); PROTEIN,URINE NEGATIVE (NEGATIVE); UROBILINOGEN,URINE 0.2 (NORMAL) E.U./dL (NORMAL)
[2018-06-21 21:38] LABS: CLARITY,URINE CLEAR (CLEAR)
[2018-06-21 21:40] LABS: COCAINE SCREEN URINE POSITIVE (NEGATIVE)
[2018-06-21 21:41] LABS: AMPHETAMINE SCREEN,URINE POSITIVE (NEGATIVE); BENZODIAZEPINES SCREEN, URINE POSITIVE (NEGATIVE); METHADONE SCREEN, URINE NEGATIVE (NEGATIVE); METHAMPHETAMINES SCREEN, URINE POSITIVE (NEGATIVE); OPIATE SCREEN, URINE NEGATIVE (NEGATIVE); OXYCODONE SCREEN, URINE NEGATIVE (NEGATIVE); PROPOXYPHENE SCREEN, URINE NEGATIVE (NEGATIVE); TRICYCLIC ANTIDEPRESSANT,URINE NEGATIVE (NEGATIVE)
--- NOTE | 2018-06-22 03:37 | ED Physician Documentation ---
ED Addendum - Addendum Addendum: The patient had been resting much of the evening and into early part of overnight. He awoke and was feeling a little bit anxious. He was offered a medication to help for relaxing. He was able to converse appropriately though was a bit rude in his speech pattern. He asked why we had not "done anything yet for him". Confirmed with him that we are waiting for social work in the morning and they are not here overnight. He was offered medication to help relax and food and water. He was told he would need to wait until the morning for social work. He said he was going to just leave and declined waiting. 06/22/18 03:35
== END 2018-06-22 03:46 | disposition home or self-care (01) ==
LOC: ED 17:31
DX: F19.10 Other psychoactive substance abuse, uncomplicated (principal); F20.9 Schizophrenia, unspecified; F17.200 Nicotine dependence, unspecified, uncomplicated; Z86.711 Personal history of pulmonary embolism; Z79.01 Long term (current) use of anticoagulants
CPT/HCPCS: 36415; 80053; 80306; 80307; 80320; 80329; 81003; 82550; 83690; 85025; 96361; 96374; 99283; 99284; J2060; 81001; 87086

== ENCOUNTER 2018-09-04 22:00 | Emergency (ER) | payer MEDICAID | END 2018-09-04 22:25 | disposition left against medical advice (07) | LOC: ED 22:00 | DX: Z53.21 Procedure and treatment not carried out due to patient leaving prior to being seen by health care provider (principal) ==

== ENCOUNTER 2019-02-02 19:03 | Emergency (ER) | payer MEDICAID ==
--- NOTE | 2019-02-02 20:09 | XRAY Report ---
Reason: fall, pain with mvmt Procedure Date: 02/02/2019 Accession Number: [id number] / [id number] Procedure: XR - Ribs w/PA Chest RT CPT Code: Final Report FULL RESULT: EXAM: RIGHT RIB RADIOGRAPHY EXAM DATE: 02/02/2019 07:42 PM. CLINICAL HISTORY: Fall, pain with mvmt. COMPARISON: CHEST 2 VIEW PA/LAT 10/28/2014 1:31 PM. TECHNIQUE: 1 view of the chest and 2 views of the ribs. FINDINGS: Bones: Normal. No fracture or bone lesion. Lungs: No focal opacities. No pneumothorax. No pleural effusions. Mediastinum: Heart and mediastinal contours are unremarkable. Other: None. IMPRESSION: Normal chest and rib radiography. [facility]
[2019-02-02 21:16] VITALS: BP 123/80
[2019-02-02] MEDS ORDERED: oxyCODONE/ACET 5/325 Prepack 4 PO STA (21:28)
--- NOTE | 2019-02-02 21:30 | ED Physician Documentation ---
PD HPI MAJOR TRAUMA - Stated complaint Stated Complaint: R SIDE PX - Chief complaint Chief Complaint: Trauma Ch/Bk - History obtained from History obtained from: Patient - History of Present Illness Mechanism of injury: Fell (Slipped and fell last night hitting his right chest wall and has persistent pain there. No other injuries. No shortness of breath.) Review of Systems Constitutional: reports: Reviewed and negative Nose: reports: Reviewed and negative Throat: reports: Reviewed and negative PD PAST MEDICAL HISTORY - Past Medical History Cardiovascular: Pulmonary embolism Respiratory: Pneumonia Neuro: None Endocrine/Autoimmune: None GI: Hepatitis : None HEENT: Other Psych: Bipolar disorder, Schizophrenia Musculoskeletal: None Derm: None - Past Surgical History Past Surgical History: No - Present Medications Home Medications: Ambulatory Orders Medication Instructions Recorded Confirmed traZODone [Desyrel] 150 mg PO HS 09/10/17 04/30/18 Rivaroxaban [Xarelto] 20 mg PO DAILY #30 tablet 10/31/17 04/30/18 Risperidone [Risperidone Odt] 3 mg PO DAILY 04/30/18 04/30/18 Oxycodone HCl/Acetaminophen 1 - 2 each PO Q6H PRN #7 tablet 02/02/19 [Percocet 5-325 mg Tablet] - Allergies Allergies/Adverse Reactions: Allergies Allergy/AdvReac Type Severity Reaction Status Date / Time shellfish derived Allergy Unknown Verified 02/02/19 19:13 - Social History Does the pt smoke?: Yes Smoking Status: Current every day smoker Does the pt drink ETOH?: No Does the pt have substance abuse?: Yes - Immunizations Immunizations are current?: Yes - POLST Patient has POLST: No PD ED PE NORMAL - Vitals Vital signs reviewed: Yes - General General: Alert and oriented X 3, Other (Slightly hypervigilant with odd affect but pleasant and cooperative) - Neck Neck: Supple, no meningeal sign, No bony TTP - Cardiac Cardiac: RRR, No murmur - Respiratory Respiratory: No respiratory distress, Clear bilaterally, Other (He is tender to the 11th and 12th ribs laterally, there is a little ecchymosis there. There is no corresponding right upper quadrant tenderness.) - Abdomen Abdomen: Non tender - Extremities Extremities: No deformity, No tenderness to palpate - Neuro Neuro: Alert and oriented X 3, Normal speech Results - Vitals Vitals: Vital Signs - 24 hr 02/02/19 02/02/19 19:13 21:15 Temperature 36.7 C 36.4 C L Heart Rate 95 86 Respiratory 18 18 Rate Blood Pressure 119/77 123/80 O2 Saturation 98 98 Oxygen O2 Source Room air - Rads (name of study) Right ribs and chest x-ray Radiology: EMP read contemporaneously (No obvious fracture) Departure - Departure Disposition: 01 Home, Self Care Clinical Impression: Contusion of right chest wall Qualifiers: Encounter type: initial encounter Qualified Code(s): S20.211A - Contusion of right front wall of thorax, initial encounter Condition: Good Record reviewed to determine appropriate education?: Yes Instructions: ED Contusion Chest Wall Prescriptions: Oxycodone HCl/Acetaminophen [Percocet 5-325 mg Tablet] 1 - 2 each PO Q6H PRN #7 tablet PRN Reason: pain Comments: Follow-up with your doctor in 1 week if not better, return for new or worsening symptoms. Do not drink or drive while taking narcotic pain medication. Note that many narcotic pain relievers also contain Tylenol/acetaminophen. Please ensure that your total dose of acetaminophen from all sources does not exceed 3 g (3000 mg) per day. You may get constipated while on this medication. Take a stool softener such as Colace twice a day while you are on it. Also add an [id number] laxative such as senna or MiraLAX on any day that you do not have a bowel movement. If you received a narcotic pain medication or sedative while in the emergency department, do not drive for the next 24 hours.
== END 2019-02-02 21:38 | disposition home or self-care (01) ==
LOC: ED 19:03
DX: S20.211A Contusion of right front wall of thorax, initial encounter (principal); W01.10XA Fall on same level from slipping, tripping and stumbling with subsequent striking against unspecified object, initial encounter; Z86.711 Personal history of pulmonary embolism; Z79.01 Long term (current) use of anticoagulants; F17.200 Nicotine dependence, unspecified, uncomplicated
CPT/HCPCS: 99283; 99284

== ENCOUNTER 2019-04-21 15:19 | Emergency (ER) | payer MEDICAID ==
--- NOTE | 2019-04-21 17:52 | ED Physician Documentation ---
PD HPI ALTERED MENTAL STATUS - Stated complaint Stated Complaint: MHE - Chief complaint Chief Complaint: MHE - History obtained from History obtained from: Patient - Additional information Additional information: Patient is unable to provide any Information other than the fact that he is "not doing good. He wants to go to [facility] because he wants help. And then he says he does not want a big scene. He will not provide any information except telling me that he knows that we want a urine specimen. Has been through this before. He appears to be hallucinating. He does have a his tory of methamphetamine use and presents very similar to this in the past after using meth. Review of Systems Unable to obtain: Other (Unable to provide.) PD PAST MEDICAL HISTORY - Past Medical History Cardiovascular: Pulmonary embolism Respiratory: Pneumonia Neuro: None Endocrine/Autoimmune: None GI: Hepatitis : None HEENT: Other Psych: Bipolar disorder, Schizophrenia Musculoskeletal: None Derm: None - Past Surgical History Past Surgical History: No - Present Medications Home Medications: Ambulatory Orders Medication Instructions Recorded Confirmed traZODone [Desyrel] 150 mg PO HS 09/10/17 04/30/18 Rivaroxaban [Xarelto] 20 mg PO DAILY #30 tablet 10/31/17 04/30/18 Risperidone [Risperidone Odt] 3 mg PO DAILY 04/30/18 04/30/18 Oxycodone HCl/Acetaminophen 1 - 2 each PO Q6H PRN #7 tablet 02/02/19 [Percocet 5-325 mg Tablet] - Allergies Allergies/Adverse Reactions: Allergies Allergy/AdvReac Type Severity Reaction Status Date / Time shellfish derived Allergy Unknown Verified 04/21/19 15:23 - Social History Does the pt smoke?: Yes Smoking Status: Current every day smoker Does the pt drink ETOH?: No Does the pt have substance abuse?: Yes - Immunizations Immunizations are current?: Yes - POLST Patient has POLST: No PD ED PE NORMAL - Vitals Vital signs reviewed: Yes - General General: Other (Thin 38-year-old man who was up walking in the hallway with a sandwich. His eyes were darting everywhere and he Walking towards the door stating that he was going to leave and then coming back into the department and saying that he wants help. He would not allow me to examine him he just kept standing up and walking around the room and out into the hallways.) - Neuro Neuro: No motor deficit, No sensory deficit, Normal speech Results - Vitals Vitals: Vital Signs - 24 hr 04/21/19 15:23 Temperature 36.5 C Heart Rate 80 Respiratory 14 Rate Blood Pressure 134/85 H O2 Saturation 99 Oxygen O2 Source Room air PD MEDICAL DECISION MAKING - ED course ED course: Patient was up ambulating in the department impeding patient care on decisive on whether he wanted to go or stay. He appears intoxicated with some sort of ps ychedelic. 1914: Care turned over to Dr Henderson. Patient continues to walk in the hallways and stating he is going to leave and then returning. Police were called because he is disrupting other patient's care in the department. He was offered medications multiple times to help him relax. Care turned over to Dr Henderson.
[2019-04-21 19:19] LABS: MUDS CUTOFF CONCENTRATIONS CUTOFF CONC BELOW:
[2019-04-21 19:25] LABS: BILIRUBIN,URINE NEGATIVE (NEGATIVE); GLUCOSE, URINE (UA) NEGATIVE (NEGATIVE); KETONES,URINE (UA) NEGATIVE (NEGATIVE); LEUKOCYTE ESTERASE, URINE NEGATIVE (NEGATIVE); NITRITE,URINE NEGATIVE (NEGATIVE); OCCULT BLOOD,URINE NEGATIVE (NEGATIVE); PROTEIN,URINE NEGATIVE (NEGATIVE); UROBILINOGEN,URINE 0.2 (NORMAL) E.U./dL (NORMAL)
[2019-04-21 19:27] LABS: CLARITY,URINE CLEAR (CLEAR)
[2019-04-21] MEDS ORDERED: OLANZapine 10 MG VIAL IM STA (19:32)
[2019-04-21 19:34] LABS: COCAINE SCREEN URINE NEGATIVE (NEGATIVE); METHAMPHETAMINES SCREEN, URINE NEGATIVE (NEGATIVE); OPIATE SCREEN, URINE NEGATIVE (NEGATIVE)
[2019-04-21 19:35] LABS: AMPHETAMINE SCREEN,URINE POSITIVE (NEGATIVE); BENZODIAZEPINES SCREEN, URINE NEGATIVE (NEGATIVE); METHADONE SCREEN, URINE NEGATIVE (NEGATIVE); OXYCODONE SCREEN, URINE NEGATIVE (NEGATIVE); PROPOXYPHENE SCREEN, URINE NEGATIVE (NEGATIVE); TRICYCLIC ANTIDEPRESSANT,URINE NEGATIVE (NEGATIVE)
[2019-04-21 20:35] LABS: BASOPHILS % (AUTO) 0.5 %; EOSINOPHILS # (AUTO) 0.1 10^3/uL (0.0-0.7); EOSINOPHILS % (AUTO) 0.9 %; HGB - HEMOGLOBIN 15.2 g/dL (14.0-18.0); LYMPHOCYTES # (AUTO) 1.8 10^3/uL (1.5-3.5); LYMPHOCYTES % (AUTO) 32.4 %; MEAN CORPUSCULAR HEMOGLOBIN 32.2 pg (27.0-31.0); MEAN CORPUSCULAR HGB CONC 34.2 g/dL (32.0-36.0); MEAN CORPUSCULAR VOLUME 94.3 fL (80.0-94.0); MEAN PLATELET VOLUME 10.9 fL (7.4-11.4); MONOCYTES # (AUTO) 0.6 10^3/uL (0.0-1.0); MONOCYTES % (AUTO) 11.5 %; NEUTROPHILS % (AUTO) 54.3 %; PLT - PLATELET COUNT 241 10^3/uL (130-450); RED BLOOD COUNT 4.72 10^6/uL (4.70-6.10); RED CELL DISTRIBUTION WIDTH 13.1 % (12.0-15.0); WHITE BLOOD COUNT 5.6 x10^3/uL (4.8-10.8)
[2019-04-21 20:50] LABS: ACETAMINOPHEN < 10 ug/mL (10-30); BUN - BLOOD UREA NITROGEN 14 mg/dL (6-20); CALCIUM 8.8 mg/dL (8.5-10.3); CARBON DIOXIDE - CO2 22 mmol/L (21-32); CHLORIDE 102 mmol/L (101-111); CREATININE 0.9 mg/dL (0.6-1.2); GFR - MDRD 94 (>89); GLUCOSE 113 mg/dL (70-100); SALICYLATE < 6.0 mg/dL; SODIUM 138 mmol/L (135-145)
--- NOTE | 2019-04-22 10:56 | ED Physician Documentation ---
PD HPI ALTERED MENTAL STATUS - Stated complaint Stated Complaint: MHE - Chief complaint Chief Complaint: MHE PD PAST MEDICAL HISTORY - Past Medical History Cardiovascular: Pulmonary embolism Respiratory: Pneumonia Neuro: None Endocrine/Autoimmune: None GI: Hepatitis : None HEENT: Other Psych: Bipolar disorder, Schizophrenia Musculoskeletal: None Derm: None - Past Surgical History Past Surgical History: No - Present Medications Home Medications: Ambulatory Orders Medication Instructions Recorded Confirmed traZODone [Desyrel] 150 mg PO HS 09/10/17 04/30/18 Rivaroxaban [Xarelto] 20 mg PO DAILY #30 tablet 10/31/17 04/30/18 Risperidone [Risperidone Odt] 3 mg PO DAILY 04/30/18 04/30/18 Oxycodone HCl/Acetaminophen 1 - 2 each PO Q6H PRN #7 tablet 02/02/19 [Percocet 5-325 mg Tablet] - Allergies Allergies/Adverse Reactions: Allergies Allergy/AdvReac Type Severity Reaction Status Date / Time shellfish derived Allergy Unknown Verified 04/21/19 15:23 - Social History Does the pt smoke?: Yes Smoking Status: Current every day smoker Does the pt drink ETOH?: No Does the pt have substance abuse?: Yes - Immunizations Immunizations are current?: Yes - POLST Patient has POLST: No Results - Vitals Vitals: Vital Signs - 24 hr 04/21/19 04/22/19 04/22/19 20:02 03:34 06:13 Heart Rate 115 H 76 61 Respiratory 24 14 14 Rate Blood Pressure 135/90 H 107/84 H 108/73 O2 Saturation 99 100 100 04/22/19 14:11 Heart Rate 67 Respiratory 18 Rate Blood Pressure 99/78 O2 Saturation 98 Oxygen O2 Source Room air - EKG (time done) 1048 Rate: Rate (enter#) (61) Rhythm: NSR Intervals: No: Prolonged QT Ischemia: Normal ST segments Compare to prior EKG: Changed from prior EKG (SPT 01-18-2018 rate has decreased) Computer interpretation: Agree with computer - Labs Labs: Laboratory Tests 04/21/19 04/21/19 04/21/19 19:18 20:25 20:25 WBC 5.6 RBC 4.72 Hgb 15.2 Hct 44.5 MCV 94.3 H MCH 32.2 H MCHC 34.2 RDW 13.1 Plt Count 241 MPV 10.9 Neut # (Auto) 3.0 Lymph # (Auto) 1.8 [place] # (Auto) 0.6 Eos # (Auto) 0.1 Baso # (Auto) 0.0 Absolute Nucleated RBC 0.00 Nucleated RBC % 0.0 Sodium 138 Potassium 3.5 Chloride 102 Carbon Dioxide 22 Anion Gap 14.0 H BUN 14 Creatinine 0.9 Estimated GFR (MDRD) 94 Glucose 113 H Calcium 8.8 Total Bilirubin AST ALT Alkaline Phosphatase Total Protein Albumin Globulin Albumin/Globulin Ratio Lipase TSH Urine Color YELLOW Urine Clarity CLEAR Urine pH 7.0 Ur Specific [place] 1.015 Urine Protein NEGATIVE Urine Glucose (UA) NEGATIVE Urine Ketones NEGATIVE Urine Occult Blood NEGATIVE Urine Nitrite NEGATIVE Urine Bilirubin NEGATIVE Urine Urobilinogen 0.2 (NORMAL) Ur Leukocyte Esterase NEGATIVE Ur Microscopic Review NOT INDICATED Urine Culture Comments NOT INDICATED Salicylates < 6.0 Urine Opiates Screen NEGATIVE Ur Oxycodone Screen NEGATIVE Urine Methadone Screen NEGATIVE Ur Propoxyphene Screen NEGATIVE Acetaminophen < 10 L Ur Barbiturates Screen NEGATIVE Ur Tricyclics Screen NEGATIVE Ur Phencyclidine Scrn NEGATIVE Ur Amphetamine Screen POSITIVE H U Methamphetamines Scrn NEGATIVE U Benzodiazepines Scrn NEGATIVE Urine Cocaine Screen NEGATIVE U Cannabinoids Screen POSITIVE H Ethyl Alcohol < 5.0 04/21/19 04/22/19 20:25 12:54 WBC RBC Hgb Hct MCV MCH MCHC RDW Plt Count MPV Neut # (Auto) Lymph # (Auto) [place] # (Auto) Eos # (Auto) Baso # (Auto) Absolute Nucleated RBC Nucleated RBC % Sodium 138 Potassium 4.1 Chloride 104 Carbon Dioxide 24 Anion Gap 10.0 BUN 14 Creatinine 0.7 Estimated GFR (MDRD) 126 Glucose 117 H Calcium 8.5 Total Bilirubin 1.0 AST 18 ALT 13 Alkaline Phosphatase 55 Total Protein 6.2 L Albumin 3.6 Globulin 2.6 Albumin/Globulin Ratio 1.4 Lipase 57 H TSH 0.88 Urine Color Urine Clarity Urine pH Ur Specific [place] Urine Protein Urine Glucose (UA) Urine Ketones Urine Occult Blood Urine Nitrite Urine Bilirubin Urine Urobilinogen Ur Leukocyte Esterase Ur Microscopic Review Urine Culture Comments Salicylates Urine Opiates Screen Ur Oxycodone Screen Urine Methadone Screen Ur Propoxyphene Screen Acetaminophen Ur Barbiturates Screen Ur Tricyclics Screen Ur Phencyclidine Scrn Ur Amphetamine Screen U Methamphetamines Scrn U Benzodiazepines Scrn Urine Cocaine Screen U Cannabinoids Screen Ethyl Alcohol PD MEDICAL DECISION MAKING - ED course Complexity details: reviewed old records, reviewed results, considered differential ED course: 38-year-old male well-known to the emergency department with a history of paranoid schizophrenia and disorganized schizophrenia has been off of his medications he is decompensated and he is evaluated by the DCR who knows the patient well and he is detained to [facility] in [place]. Departure - Departure Disposition: 65 Psych Hosp/Unit DC/Xfer Clinical Impression: Schizophrenia Qualifiers: Schizophrenia type: paranoid schizophrenia Qualified Code(s): F20.0 - Paranoid schizophrenia Condition: Stable Discharge Date/Time: 04/22/19 15:15
[2019-04-22 13:14] LABS: ALBUMIN 3.6 g/dL (3.2-5.5); ALBUMIN/GLOBULIN RATIO 1.4 (1.0-2.2); CALCIUM 8.5 mg/dL (8.5-10.3); CREATININE 0.7 mg/dL (0.6-1.2); TOTAL PROTEIN 6.2 g/dL (6.7-8.2)
[2019-04-22 14:12] VITALS: BP 99/78
[2019-04-22] MEDS ORDERED: NICOTINE 14 MG PATCH TOP STA (14:29)
== END 2019-04-22 15:15 ==
LOC: ED 15:19
DX: F20.0 Paranoid schizophrenia (principal); F17.200 Nicotine dependence, unspecified, uncomplicated
CPT/HCPCS: 36415; 80048; 80053; 80306; 80307; 80320; 80329; 81003; 83690; 84443; 85025; 93005; 96372; 99281; 99285; A9270; 81001; 87086

== ENCOUNTER 2019-04-22 15:32 | Outpatient (CLI) | payer MEDICAID | END 2019-04-22 15:33 | LOC: EMS 15:32 | PROVIDERS: ATTEND Surgery | DX: F20.1 Disorganized schizophrenia (principal) | CPT/HCPCS: A0425; A0428 ==

== ENCOUNTER 2019-11-04 18:25 | Emergency (ER) | payer MEDICAID ==
--- NOTE | 2019-11-04 20:31 | ED Physician Documentation ---
History of Present Illness - Stated complaint Stated Complaint: FEVER - Chief complaint Chief Complaint: Fever - History obtained from History obtained from: Patient - Additonal information Additional information: Patient is a 39-year-old male presents with a chief complaint of fevers and body aches for the last 12 hours denies any other complaints denies headache, neck pain chest pain or shortness of breath. He is unsure if he has been exposed to any COVID positive contacts. He denies any history of IV drug abuse. Denies any rashes. Review of Systems Constitutional: reports: Fever Eyes: reports: Reviewed and negative Ears: reports: Reviewed and negative Nose: reports: Reviewed and negative Throat: reports: Reviewed and negative Cardiac: reports: Reviewed and negative Respiratory: reports: Reviewed and negative GI: reports: Reviewed and negative : reports: Reviewed and negative Skin: reports: Reviewed and negative Musculoskeletal: reports: Reviewed and negative Neurologic: reports: Reviewed and negative Psychiatric: reports: Reviewed and negative Endocrine: reports: Reviewed and negative Immunocompromised: reports: Reviewed and negative PD PAST MEDICAL HISTORY - Past Medical History Past Medical History: Yes Cardiovascular: Pulmonary embolism Respiratory: Pneumonia Neuro: None Endocrine/Autoimmune: None GI: Hepatitis : None HEENT: Other Psych: Bipolar disorder, Schizophrenia Musculoskeletal: None Derm: None - Past Surgical History Past Surgical History: No - Present Medications Home Medications: Ambulatory Orders Medication Instructions Recorded Confirmed traZODone [Desyrel] 150 mg PO HS 09/10/17 11/04/19 Rivaroxaban [Xarelto] 20 mg PO DAILY #30 tablet 10/31/17 11/04/19 Oxycodone HCl/Acetaminophen 1 - 2 each PO Q6H PRN #7 tablet 02/02/19 11/04/19 [Percocet 5-325 mg Tablet] Paliperidone Palmitate [Invega 156 mg IM ONCE 05/25/19 11/04/19 Sustenna] - Allergies Allergies/Adverse Reactions: Allergies Allergy/AdvReac Type Severity Reaction Status Date / Time shellfish derived Allergy Unknown Verified 04/21/19 15:23 - Social History Does the pt smoke?: Yes Smoking Status: Current every day smoker Does the pt drink ETOH?: No Does the pt have substance abuse?: Yes - Immunizations Immunizations are current?: Yes - POLST Patient has POLST: No PD ED PE NORMAL - Vitals Vital signs reviewed: Yes - General General: Alert and oriented X 3, No acute distress, Well developed/nourished - HEENT HEENT: Atraumatic, PERRL, EOMI, Ears normal, Moist mucous membranes, Pharynx benign, Dentition benign, Other (Adentulous) - Neck Neck: Supple, no meningeal sign, No adenopathy, No JVD, No bruit - Cardiac Cardiac: RRR, No murmur, No gallop, Strong equal pulses - Respiratory Respiratory: No respiratory distress, Clear bilaterally - Abdomen Abdomen: Normal bowel sounds, Soft, Non tender, Non distended - Back Back: No CVA TTP, No spinal TTP - Derm Derm: Normal color, Warm and dry, No rash - Extremities Extremities: No deformity, No tenderness to palpate, Normal ROM s pain, No edema, No calf tenderness / cord - Neuro Neuro: Alert and oriented X 3, 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 2-12 intact, No motor deficit, No sensory deficit, Normal speech - Psych Psych: Normal mood, Normal affect Results - Vitals Vitals: Vital Signs - 24 hr 11/04/19 11/04/19 11/04/19 18:51 20:36 21:51 Temperature 38.1 C H 37.3 C Heart Rate 113 H 118 H 105 H Respiratory 16 20 16 Rate Blood Pressure 104/79 112/80 114/78 O2 Saturation 97 100 98 Oxygen O2 Source Room air - Labs Labs: Laboratory Tests 11/04/19 11/04/19 11/04/19 21:00 21:00 21:10 Urine Color YELLOW Urine Clarity CLEAR Urine pH 7.0 Ur Specific [place] 1.025 Urine Protein TRACE Urine Glucose (UA) NEGATIVE Urine Ketones TRACE Urine Occult Blood NEGATIVE Urine Nitrite NEGATIVE Urine Bilirubin NEGATIVE Urine Urobilinogen 1 (NORMAL) Ur Leukocyte Esterase NEGATIVE Ur Microscopic Review NOT INDICATED Urine Culture Comments NOT INDICATED Influenza A (Rapid) Negative Influenza B (Rapid) Negative Group A Strep Rapid Negative PD MEDICAL DECISION MAKING - ED course Complexity details: reviewed results, re-evaluated patient, considered differential (Patient is well-appearing on exam no headache no neck pain no rashes. Screening for flu is negative as well as chest x-ray urinalysis and strep. COVID is pending.Patient should follow-up with a primary care provider tomorrow.), d/w patient, other ED course: 39-year-old male presents with 12-hour history of fever chest x-ray is negative urinalysis is negative strep is negative influenza is negative COVID screening is pending. Patient has not taken any antipyretics prior to arrival he was given a dose of Tylenol here. Heart rate is in the 90s and regular. Departure - Departure Disposition: 01 Home, Self Care Clinical Impression: Fever Qualifiers: Fever type: unspecified Qualified Code(s): R50.9 - Fever, unspecified Condition: Stable Instructions: ED Fever Unconf Cause, ED Fever Control Follow-Up: IRVIN SABILLON MD [Primary Care Provider] - Tomorrow Comments: Please follow-up with your primary care provider tomorrow for recheck. Take Tylenol as needed for fever. Discharge Date/Time: 11/04/19 21:51
[2019-11-04] MEDS ORDERED: ACETAMINOPHEN 325 MG TABLET PO STA ×2 (20:32→20:50)
--- NOTE | 2019-11-04 20:55 | XRAY Report ---
PROCEDURE: Chest 1 View X-Ray INDICATIONS: cough fever TECHNIQUE: One view of the chest was acquired. COMPARISON: 02.02.19 FINDINGS: Surgical changes and devices: None. Lungs and pleura: No pleural effusions or pneumothorax. Lungs are clear. Mediastinum: Mediastinal contours appear normal. Heart size is normal. Bones and chest wall: No suspicious bony lesions. Overlying soft tissues appear unremarkable. IMPRESSION: No acute process. Reviewed by: Delon Mari MD on 11/04/2019 8:54 PM PDT Approved by: Delon Mair MD on 11/04/2019 8:54 PM PDT Station ID: [id number]
[2019-11-04 21:16] LABS: RAPID STREP SCREEN Negative (Negative)
[2019-11-04 21:20] LABS: GLUCOSE, URINE (UA) NEGATIVE (NEGATIVE); KETONES,URINE (UA) TRACE mg/dL (NEGATIVE); LEUKOCYTE ESTERASE, URINE NEGATIVE (NEGATIVE); NITRITE,URINE NEGATIVE (NEGATIVE); OCCULT BLOOD,URINE NEGATIVE (NEGATIVE); PROTEIN,URINE TRACE mg/dL (NEGATIVE); UROBILINOGEN,URINE 1 (NORMAL) E.U./dL (NORMAL)
[2019-11-04 21:25] LABS: BILIRUBIN,URINE NEGATIVE (NEGATIVE); CLARITY,URINE CLEAR (CLEAR); ICTOTEST,URINE NEGATIVE
[2019-11-04 21:52] VITALS: BP 114/78
== END 2019-11-04 21:51 | disposition home or self-care (01) ==
LOC: ED 18:25
DX: R50.9 Fever, unspecified (principal); Z20.828 Contact with and (suspected) exposure to other viral communicable diseases; Z86.711 Personal history of pulmonary embolism; Z79.01 Long term (current) use of anticoagulants; F17.200 Nicotine dependence, unspecified, uncomplicated
CPT/HCPCS: 71045; 81003; 87070; 87077; 87275; 87276; 87430; 87635; 99283; 99284; A9270; 81001; 87086

== ENCOUNTER 2020-01-02 17:35 | Emergency (ER) | payer MEDICAID ==
[2020-01-02 18:09] LABS: BASOPHILS % (AUTO) 0.4 %; EOSINOPHILS % (AUTO) 0.7 %; HGB - HEMOGLOBIN 15.1 g/dL (14.0-18.0); LYMPHOCYTES # (AUTO) 1.4 10^3/uL (1.5-3.5); MEAN CORPUSCULAR HGB CONC 35.1 g/dL (32.0-36.0); MEAN CORPUSCULAR VOLUME 91.1 fL (80.0-94.0); MEAN PLATELET VOLUME 11.2 fL (7.4-11.4); MONOCYTES # (AUTO) 0.4 10^3/uL (0.0-1.0); MONOCYTES % (AUTO) 7.4 %; NEUTROPHILS # (AUTO) 3.7 10^3/uL (1.5-6.6); NEUTROPHILS % (AUTO) 66.3 %; PLT - PLATELET COUNT 194 10^3/uL (130-450); RED BLOOD COUNT 4.72 10^6/uL (4.70-6.10); RED CELL DISTRIBUTION WIDTH 12.4 % (12.0-15.0); WHITE BLOOD COUNT 5.5 x10^3/uL (4.8-10.8)
[2020-01-02 18:21] LABS: ALBUMIN/GLOBULIN RATIO 1.4 (1.0-2.2); BILIRUBIN,TOTAL 1.1 mg/dL (0.2-1.0); CALCIUM 9.1 mg/dL (8.5-10.3); CREATININE 0.8 mg/dL (0.6-1.2); TOTAL PROTEIN 6.8 g/dL (6.7-8.2)
--- NOTE | 2020-01-02 18:40 | ED Physician Documentation ---
PD HPI CHEST PAIN - Stated complaint Stated Complaint: CP - Chief complaint Chief Complaint: Cardiac - History obtained from History obtained from: Patient - History of Present Illness Timing - onset: How many days ago (6) Timing - onset during: Rest Timing - duration: Hours (6) Timing - details: Abrupt onset Pain level max: 3 Pain level now: 0 Location: Left chest Improved by: Nothing Worsened by: Other (nothing) Associated symptoms: No: Shortness of air, Diaphoresis, Nausea, Vomiting, Feeling faint / dizzy, General Weakness, Palpitations, Cough Recently seen: Not recently seen - Additional information Additional information: 39-year-old male presents to the emergency department stating that he is a squ eezing pain in his left chest. This happened approximately 6 hours ago. Lasted approximately 5 seconds. He states it recurred, the second time it only lasted about 3 seconds. Currently is asymptomatic. Nothing makes it better or worse. Review of Systems Constitutional: denies: Fever, Chills Nose: denies: Rhinorrhea / runny nose, Congestion Throat: denies: Sore throat Cardiac: denies: Palpitations Respiratory: denies: Dyspnea, Cough GI: denies: Nausea, Vomiting, Diarrhea Skin: denies: Rash PD PAST MEDICAL HISTORY - Past Medical History Past Medical History: Yes Cardiovascular: Pulmonary embolism Respiratory: Pneumonia Neuro: None Endocrine/Autoimmune: None GI: Hepatitis : None HEENT: Other Psych: Bipolar disorder, Schizophrenia Musculoskeletal: None Derm: None - Past Surgical History Past Surgical History: No - Present Medications Home Medications: Ambulatory Orders Medication Instructions Recorded Confirmed traZODone [Desyrel] 150 mg PO HS 09/10/17 11/04/19 Rivaroxaban [Xarelto] 20 mg PO DAILY #30 tablet 10/31/17 11/04/19 Oxycodone HCl/Acetaminophen 1 - 2 each PO Q6H PRN #7 tablet 02/02/19 11/04/19 [Percocet 5-325 mg Tablet] Paliperidone Palmitate [Invega 156 mg IM ONCE 05/25/19 11/04/19 Sustenna] - Allergies Allergies/Adverse Reactions: Allergies Allergy/AdvReac Type Severity Reaction Status Date / Time shellfish derived Allergy Unknown Verified 01/02/20 17:43 - Social History Does the pt smoke?: Yes Smoking Status: Current every day smoker Does the pt drink ETOH?: No Does the pt have substance abuse?: Yes Substance Use and Type: Marijuana - Immunizations Immunizations are current?: Yes - POLST Patient has POLST: No PD ED PE NORMAL - Vitals Vital signs reviewed: Yes - General General: Alert and oriented X 3, No acute distress, Well developed/nourished - HEENT HEENT: PERRL, Moist mucous membranes - Neck Neck: Supple, no meningeal sign - Cardiac Cardiac: RRR, No murmur, Strong equal pulses - Respiratory Respiratory: No respiratory distress, Clear bilaterally - Abdomen Abdomen: Soft, Non tender, Non distended - Derm Derm: Warm and dry - Extremities Extremities: No edema, No calf tenderness / cord - Neuro Neuro: Alert and oriented X 3 - Psych Psych: Normal mood, Normal affect Results - Vitals Vitals: Vital Signs - 24 hr 01/02/20 01/02/20 01/02/20 17:39 17:50 18:51 Temperature 36.8 C 37.3 C 36.9 C Heart Rate 98 104 H 91 Respiratory 18 12 16 Rate Blood Pressure 119/81 H 115/85 H 116/87 H O2 Saturation 96 99 99 Oxygen O2 Source Room air - EKG (time done) 1740 Rate: Rate (enter#) (100) Rhythm: Sinus tachycardia [place]: Normal Intervals: Normal AR QRS: Normal Ischemia: Normal ST segments - Labs Labs: Laboratory Tests 01/02/20 01/02/20 01/02/20 18:00 18:00 18:00 WBC 5.5 RBC 4.72 Hgb 15.1 Hct 43.0 MCV 91.1 MCH 32.0 H MCHC 35.1 RDW 12.4 Plt Count 194 MPV 11.2 Neut # (Auto) 3.7 Lymph # (Auto) 1.4 [place] # (Auto) 0.4 Eos # (Auto) 0.0 Baso # (Auto) 0.0 Absolute Nucleated RBC 0.00 Nucleated RBC % 0.0 Sodium 139 Potassium 3.6 Chloride 102 Carbon Dioxide 27 Anion Gap 10.0 BUN 13 Creatinine 0.8 Estimated GFR (MDRD) 107 Glucose 146 H Calcium 9.1 Total Bilirubin 1.1 H AST 18 ALT 14 Alkaline Phosphatase 61 Troponin I High Sens < 2.3 L Total Protein 6.8 Albumin 4.0 Globulin 2.8 Albumin/Globulin Ratio 1.4 Lipase 30 - Rads (name of study) cxr Radiology: Prelim report reviewed, EMP read contemporaneously, See rad report (No acute abnormality) PD MEDICAL DECISION MAKING - ED course Complexity details: reviewed results, re-evaluated patient, considered differential (No ST elevation [place], no aortic dissection, no PE, no tension pneumothorax, no aortic aneurysm), d/w patient ED course: 39-year-old male presents to the emergency department with atypical chest pain t reymundo. Normal EKG. Negative high-sensitivity troponin. Normal lab testing. No evidence of acute coronary syndrome, PE, pneumothorax. Patient is well- appearing, nontoxic. Asymptomatic here. Patient counseled regarding signs and symptoms for which I believe and urgent re-evaluation would be necessary. Patient with good understanding of and agreement to plan and is comfortable going home at this time This document was made in part using voice recognition software. While efforts are made to proofread this document, sound alike and grammatical errors may occur. Departure - Departure Disposition: 01 Home, Self Care Clinical Impression: Chest pain Qualifiers: Chest pain type: unspecified Qualified Code(s): R07.9 - Chest pain, unspecified Condition: Good Instructions: ED Chest Pain Atypical Unkn Cause Follow-Up: IRVIN SABILLON MD [Primary Care Provider] - Within 3 Days Comments: Follow-up with your doctor for further care. Return if you worsen. Discharge Date/Time: 01/02/20 18:56
--- NOTE | 2020-01-02 18:44 | XRAY Report ---
PROCEDURE: Chest 1 View X-Ray INDICATIONS: Chest Pain TECHNIQUE: One view of the chest was acquired. COMPARISON: 11/04/2019, 02/02/2019, 10/28/2014 FINDINGS: Surgical changes and devices: None. Lungs and pleura: No pleural effusions or pneumothorax. Lungs are clear. Mediastinum: Mediastinal contours appear normal. Heart size is normal. Bones and chest wall: No suspicious bony lesions. Overlying soft tissues appear unremarkable. IMPRESSION: Unremarkable portable chest. Reviewed by: Eh Rae MD on 01/02/2020 5:43 PM AKDT Approved by: Eh Rae MD on 01/02/2020 5:43 PM AKDT Station ID: [id number]
[2020-01-02] MEDS ORDERED: ACETAMINOPHEN 325 MG TABLET PO STA (18:46)
[2020-01-02 18:52] VITALS: BP 116/87
== END 2020-01-02 18:56 | disposition home or self-care (01) ==
LOC: ED 17:35
DX: R07.9 Chest pain, unspecified (principal); F17.200 Nicotine dependence, unspecified, uncomplicated
CPT/HCPCS: 36415; 71045; 80053; 83690; 84484; 85025; 93005; 99284; A9270

== ENCOUNTER 2020-03-18 14:07 | Emergency (ER) | payer MEDICAID ==
[2020-03-18 14:15] VITALS: BP 125/87
--- NOTE | 2020-03-18 14:33 | ED Physician Documentation ---
PD HPI URI - Stated complaint Stated Complaint: COUGH/SOA - Chief complaint Chief Complaint: Heent - History obtained from History obtained from: Patient - History of Present Illness Timing - onset: How many days ago (2) Timing duration: Days (2) Timing details: Gradual onset, Still present Associated symptoms: Ear pain, Sore throat, Dry cough, Dyspnea. No: Fever Contributing factors: Sick contact Improves by: Rest, Medication Worsened by: Activity Similar symptoms before: Diagnosis (OM and bronchitis) Recently seen: Not recently seen - Additional information Additional information: 39-year-old male with a history of schizoaffective affective disorder has developed a cough sore throat and ear pain over the past 2 days. He has been exposed to a friend's mother who has been exposed to Covid. He has not been exposed to a known Covid positive person. Review of Systems Constitutional: denies: Fever Eyes: denies: Decreased vision Ears: reports: Ear pain Nose: reports: Rhinorrhea / runny nose, Congestion Throat: reports: Sore throat Cardiac: denies: Chest pain / pressure, Palpitations Respiratory: reports: Dyspnea, Cough GI: denies: Nausea, Vomiting PD PAST MEDICAL HISTORY - Past Medical History Cardiovascular: Pulmonary embolism Respiratory: Pneumonia Neuro: None Endocrine/Autoimmune: None GI: Hepatitis : None HEENT: Other Psych: Bipolar disorder, Schizophrenia Musculoskeletal: None Derm: None - Past Surgical History Past Surgical History: No - Present Medications Home Medications: Ambulatory Orders Medication Instructions Recorded Confirmed traZODone [Desyrel] 150 mg PO HS 09/10/17 03/18/20 Paliperidone Palmitate [Invega 156 mg IM ONCE 05/25/19 03/18/20 Sustenna] Azithromycin [Zithromax] 250 mg PO DAILY #6 tablet 03/18/20 Rivaroxaban [Xarelto] 20 mg PO DAILY 03/18/20 03/18/20 - Allergies Allergies/Adverse Reactions: Allergies Allergy/AdvReac Type Severity Reaction Status Date / Time shellfish derived Allergy Unknown Verified 03/18/20 14:42 - Social History Does the pt smoke?: Yes Smoking Status: Current every day smoker Does the pt drink ETOH?: No Does the pt have substance abuse?: Yes - Immunizations Immunizations are current?: Yes - POLST Patient has POLST: No PD ED PE NORMAL - Vitals Vital signs reviewed: Yes (Tachycardic and hypertensive) - General General: Alert and oriented X 3, No acute distress, Well developed/nourished - HEENT HEENT: Atraumatic, PERRL, EOMI, Pharynx benign (There is minimal L inflammation along the umbo on the left side the right is clear), Other - Neck Neck: Supple, no meningeal sign, No bony TTP - Cardiac Cardiac: RRR, No murmur - Respiratory Respiratory: No respiratory distress, Clear bilaterally - Abdomen Abdomen: Soft, Non tender - Back Back: No CVA TTP, No spinal TTP - Derm Derm: Normal color, Warm and dry, No rash - Extremities Extremities: No deformity, No edema - Neuro Neuro: Alert and oriented X 3, building dismantler 2-12 intact, No motor deficit, No sensory deficit, Normal speech Motor: Obeys Commands Verbal: Oriented - Psych Psych: Normal mood, Normal affect Results - Vitals Vitals: Vital Signs - 24 hr 03/18/20 14:11 Temperature 36.8 C Heart Rate 104 H Respiratory 16 Rate Blood Pressure 125/87 H O2 Saturation 98 Oxygen O2 Source Room air - Labs Labs: Laboratory Tests 03/18/20 14:55 Group A Strep Rapid Negative - Rads (name of study) chest Radiology: Prelim report reviewed (Impression: No acute cardiopulmonary pathology.), EMP read indepedently, See rad report PD MEDICAL DECISION MAKING - ED course Complexity details: considered differential, d/w patient ED course: 39-year-old male with a cough and congestion is otitis on exam has a sore throat a rapid strep is obtained a coronavirus swab is obtained and the patient is administered dexamethasone 10 mg orally. Departure - Departure Disposition: Home, Self Care Clinical Impression: Otitis media Qualifiers: Otitis media type: suppurative Chronicity: acute Laterality: left Recurrence: non-recurrent Spontaneous tympanic membrane rupture: without spontaneous rupture Qualified Code(s): H66.002 - Acute suppurative otitis media without spontaneous rupture of ear drum, left ear Condition: Stable Instructions: ED Otitis Media Acute Adult Follow-Up: [facility] [Provider Group] Prescriptions: Azithromycin [Zithromax] 250 mg PO DAILY #6 tablet
[2020-03-18] MEDS ORDERED: DEXAMETHASONE 10 MG/ML VIAL PO STA (14:35)
[2020-03-18] MEDS ORDERED: CHERRY SYRUP 10 ML UDC PO ONE (14:35)
--- NOTE | 2020-03-18 15:07 | XRAY Report ---
PROCEDURE: Chest 1 View X-Ray INDICATIONS: cough chest pain TECHNIQUE: One view of the chest was acquired. COMPARISON: 01/02/2020 FINDINGS: Surgical changes and devices: None. Lungs and pleura: No pleural effusions or pneumothorax. Lungs are clear. Mediastinum: Mediastinal contours appear normal. Heart size is normal. Bones and chest wall: No suspicious bony lesions. Overlying soft tissues appear unremarkable. IMPRESSION: No acute cardiopulmonary pathology. Reviewed by: Rolo Monae MD on 03/18/2020 3:06 PM [facility] Approved by: Rolo Monae MD on 03/18/2020 3:06 PM [facility] Station ID: [id number]
[2020-03-18 15:23] LABS: RAPID STREP SCREEN Negative (Negative)
--- OUTSIDE RECORDS SUMMARY | 2020-03-23 01:42 | EXTERNAL MEDICAL SUMMARY RPT | Continuity of Care Document ---
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 2020-01-06 00:00:00 Health-related behavior [facility] 2020-01-06 00:00:00 Tobacco use and exposure [facility] 2020-01-06 00:00:00 Exercise [facility] 2020-01-06 00:00:00 Details of drug misuse behavior [facility] 2020-01-06 00:00:00 Alcohol use [facility] 2020-01-06 00:00:00 Tobacco [facility] 2020-01-06 00:00:00 Total score? [facility] 2020-01-06 00:00:00 Smoker, current status unknown [facility] Allergies date description facility [facility]ODONE [facility]INE [facility]IC[facility] ADHESIVE \T\ T[facility] NSAIDS (NON-STEROIDAL ANTI-INFLAMMATORY DRUG) [facility] [place] [facility]EX [facility] ERYTHROMYCIN BASE [facility] CIPROFLOXACIN [facility]IN [facility] KETOROLAC [facility] LISINOPRIL [facility] [place] CELECOXIB [facility] IODINE [facility] [place] ROSUVASTATIN [facility] [place] ZOLEDRONIC [id number] shellfish derived [facility] [place] SULFA ANTIBIOTICS [facility] LACTOSE INTOLERANCE (GI) [facility] No Known Drug Allergies [facility] lisinopril [facility] [place] codeine [facility] [place] shellfish derived [facility] Results Social History date description facility 2020-01-06 00:00:00 Smoker, current status unknown [facility] [place] Social History date description facility 2020-01-06 00:00:00 Smoker, current status unknown [facility] [place] date description facility [id number]
== END 2020-03-18 15:37 | disposition home or self-care (01) ==
LOC: ED 14:07
DX: H66.002 Acute suppurative otitis media without spontaneous rupture of ear drum, left ear (principal); J02.9 Acute pharyngitis, unspecified; Z20.822 Contact with and (suspected) exposure to COVID-19; Z86.711 Personal history of pulmonary embolism; Z79.01 Long term (current) use of anticoagulants; F17.200 Nicotine dependence, unspecified, uncomplicated
CPT/HCPCS: 71045; 87070; 87430; 87635; 99283; 99284; A9270

== ENCOUNTER 2021-12-06 14:39 | Emergency (ER) | payer MEDICAID ==
[2021-12-06 16:02] LABS: B. PARAPERTUSSIS- RESP PCR PAN NOT DETECTED; B. PERTUSSIS- RESP PCR PANEL NOT DETECTED; C. PNEUMONIAE- RESP PCR PANEL NOT DETECTED; CORONAVIRUS 229E-RESP PCR NOT DETECTED; CORONAVIRUS HKU1-RESP PCR NOT DETECTED; CORONAVIRUS NL63-RESP PCR NOT DETECTED; CORONAVIRUS OC43-RESP PCR NOT DETECTED; HUMAN METAPNEUMOVIRUS NOT DETECTED; INFLUENZA A- RESP PCR PANEL NOT DETECTED; INFLUENZA B - RESP PCR PANEL NOT DETECTED; M. PNEUMONIAE- RESP PCR PANEL NOT DETECTED; PARAINFLUENZA VIRUS 1 NOT DETECTED; PARAINFLUENZA VIRUS 2 NOT DETECTED; PARAINFLUENZA VIRUS 3 NOT DETECTED; PARAINFLUENZA VIRUS 4 NOT DETECTED; RHINOVIRUS/ENTEROVIRUS DETECTED; RSV- RESP PCR PANEL NOT DETECTED; SARS-CoV-2 -RESP PCR PANEL NOT DETECTED
--- NOTE | 2021-12-06 16:06 | XRAY Report ---
PROCEDURE: Chest 1 View X-Ray INDICATIONS: cough, fever TECHNIQUE: One view of the chest was acquired. COMPARISON: 03/18/2020, 01/02/2020, 11/04/2019 FINDINGS: Surgical changes and devices: None. Lungs and pleura: No pleural effusions or pneumothorax. Lungs are clear. Mediastinum: Mediastinal contours appear normal. Heart size is normal. Bones and chest wall: No suspicious bony lesions. Overlying soft tissues appear unremarkable. IMPRESSION: No acute cardiopulmonary pathology. Reviewed by: Rolo Monae MD on 12/06/2021 4:05 PM PDT Approved by: Rolo Monae MD on 12/06/2021 4:05 PM PDT Station ID: [id number]
--- NOTE | 2021-12-06 16:29 | ED Physician Documentation ---
History of Present Illness - Stated complaint Stated Complaint: SOA, SORE THROAT, BODY ACHE - Chief complaint Chief Complaint: General - History obtained from History obtained from: Patient - History of Present Illness Timing: Yesterday Pain level max: 1 Pain level now: 1 - Additonal information Additional information: 41-year-old male presents to the emergency department with cough, nasal congestion, body aches and fever since last night. He is concerned about having COVID. Nothing makes it better or worse. He does smoke marijuana daily. No abdominal pain. No back pain. No headache. No recent travel. Review of Systems Constitutional: reports: Fever Ears: denies: Ear pain Nose: reports: Rhinorrhea / runny nose, Congestion Cardiac: denies: Chest pain / pressure Respiratory: reports: Cough. denies: Dyspnea, Wheezing GI: denies: Abdominal Pain, Nausea, Vomiting, Diarrhea Skin: denies: Rash Musculoskeletal: denies: Neck pain, Back pain Neurologic: denies: Headache PD PAST MEDICAL HISTORY - Past Medical History Past Medical History: Yes Cardiovascular: Pulmonary embolism Respiratory: Pneumonia Neuro: None Endocrine/Autoimmune: None GI: Hepatitis : None HEENT: Other Psych: Bipolar disorder, Schizophrenia Musculoskeletal: None Derm: None - Past Surgical History Past Surgical History: No - Present Medications Home Medications: Ambulatory Orders Medication Instructions Recorded Confirmed traZODone [Desyrel] 150 mg PO HS 09/10/17 12/06/21 Paliperidone Palmitate [Invega 156 mg IM ONCE 05/25/19 12/06/21 Sustenna] Rivaroxaban [Xarelto] 20 mg PO DAILY 03/18/20 03/18/20 Benzonatate [Tessalon] 200 mg PO TID PRN #30 cap 12/06/21 - Allergies Allergies/Adverse Reactions: Allergies Allergy/AdvReac Type Severity Reaction Status Date / Time shellfish derived Allergy Unknown Verified 12/06/21 14:51 - Social History Does the pt smoke?: Yes Smoking Status: Current every day smoker Does the pt drink ETOH?: No Does the pt have substance abuse?: Yes - Immunizations Immunizations are current?: Yes - POLST Patient has POLST: No PD ED PE NORMAL - Vitals Vital signs reviewed: Yes - General General: Alert and oriented X 3, No acute distress, Well developed/nourished - HEENT HEENT: PERRL, Ears normal, Moist mucous membranes, Pharynx benign - Neck Neck: Supple, no meningeal sign - Cardiac Cardiac: RRR, Strong equal pulses - Respiratory Respiratory: No respiratory distress, Clear bilaterally - Abdomen Abdomen: Soft, Non tender, Non distended - Derm Derm: Warm and dry - Extremities Extremities: No edema - Neuro Neuro: Alert and oriented X 3 - Psych Psych: Normal mood, Normal affect Results - Vitals Vitals: Vital Signs - 24 hr 12/06/21 12/06/21 14:52 16:33 Temperature 36.8 C Heart Rate 91 86 Respiratory 18 18 Rate Blood Pressure 109/75 110/79 O2 Saturation 97 97 Oxygen O2 Source Room air - Labs Labs: Laboratory Tests 12/06/21 15:00 Nasal Adenovirus (PCR) NOT DETECTED Nasal B. parapertussis DNA (PCR) NOT DETECTED Nasal Coronavir 229E PCR NOT DETECTED Nasal Coronavir HKU1 PCR NOT DETECTED Nasal Coronavir NL63 PCR NOT DETECTED Nasal Coronavir OC43 PCR NOT DETECTED Nasal Enterovir/Rhinovir PCR DETECTED A Nasal Influenza B PCR NOT DETECTED Nasal Influenza A PCR NOT DETECTED Nasal Parainfluen 1 PCR NOT DETECTED Nasal Parainfluen 2 PCR NOT DETECTED Nasal Parainfluen 3 PCR NOT DETECTED Nasal Parainfluen 4 PCR NOT DETECTED Nasal RSV (PCR) NOT DETECTED Nasal B.pertussis DNA PCR NOT DETECTED Nasal C.pneumoniae (PCR) NOT DETECTED Jean Human Metapneumo PCR NOT DETECTED Nasal M.pneumoniae (PCR) NOT DETECTED Nasal SARS-CoV-2 (PCR) NOT DETECTED - Rads (name of study) cxr Radiology: Final report received, EMP read contemporaneously, See rad report PD MEDICAL DECISION MAKING - ED course Complexity details: reviewed results, re-evaluated patient, considered differential, d/w patient ED course: Patient is well-appearing, nontoxic. Afebrile. No hypoxia. No respiratory distress. No acute findings on chest x-ray. His respiratory PCR is positive for rhinovirus. We will continue supportive care and have him follow-up with his doctor for further care. Patient counseled regarding signs and symptoms for which I believe and urgent re-evaluation would be necessary. Patient with good understanding of and agreement to plan and is comfortable going home at this time This document was made in part using voice recognition software. While efforts are made to proofread this document, sound alike and grammatical errors may occur. Departure - Departure Disposition: 01 Home, Self Care Clinical Impression: Rhinovirus Condition: Good Instructions: ED URI Viral Follow-Up: your,doctor in 1 week [Other] Prescriptions: Benzonatate [Tessalon] 200 mg PO TID PRN #30 cap PRN Reason: Cough Comments: You have tested positive for rhinovirus today. Please follow-up with your doctor for further care. Please return if you worsen. Your COVID test is negative. Discharge Date/Time: 12/06/21 16:37
[2021-12-06 16:33] VITALS: BP 110/79
== END 2021-12-06 16:37 | disposition home or self-care (01) ==
LOC: ED 14:39
DX: B34.8 Other viral infections of unspecified site (principal); F17.200 Nicotine dependence, unspecified, uncomplicated; Z20.822 Contact with and (suspected) exposure to COVID-19
CPT/HCPCS: 87633; 99282; 99284

== ENCOUNTER 2022-03-07 12:11 | Emergency (ER) | payer MEDICAID ==
[2022-03-07] MEDS ORDERED: OLANZapine ODT 5 MG TABLET TL STA ×2 (13:21→23:47)
[2022-03-07 13:35] LABS: MUDS CUTOFF CONCENTRATIONS CUTOFF CONC BELOW:
[2022-03-07 13:37] LABS: BASOPHILS % (AUTO) 0.4 %; EOSINOPHILS % (AUTO) 0.6 %; HCT - HEMATOCRIT 48.6 % (42.0-52.0); HGB - HEMOGLOBIN 16.8 g/dL (14.0-18.0); LYMPHOCYTES # (AUTO) 1.6 10^3/uL (1.5-3.5); LYMPHOCYTES % (AUTO) 23.7 %; MEAN CORPUSCULAR HEMOGLOBIN 31.2 pg (27.0-31.0); MEAN CORPUSCULAR HGB CONC 34.6 g/dL (32.0-36.0); MEAN CORPUSCULAR VOLUME 90.2 fL (80.0-94.0); MEAN PLATELET VOLUME 10.7 fL (7.4-11.4); MONOCYTES # (AUTO) 0.6 10^3/uL (0.0-1.0); MONOCYTES % (AUTO) 8.4 %; NEUTROPHILS # (AUTO) 4.5 10^3/uL (1.5-6.6); NEUTROPHILS % (AUTO) 66.8 %; PLT - PLATELET COUNT 280 10^3/uL (130-450); RED BLOOD COUNT 5.39 10^6/uL (4.70-6.10); RED CELL DISTRIBUTION WIDTH 12.6 % (12.0-15.0); WHITE BLOOD COUNT 6.8 x10^3/uL (4.8-10.8)
--- NOTE | 2022-03-07 13:45 | ED Physician Documentation ---
PD HPI MHE - Stated complaint Stated Complaint: MHE - Chief complaint Chief Complaint: MHE - History obtained from History obtained from: Patient, Family - Additional information Additional information: The patient is brought to the emergency department by a friend for chief complaint of hallucinating and "not acting like himself". Patient has a history of schizophrenia and methamphetamine abuse and psychosis and has previously been treated with Invega shots. However, the friend states that the clinic across the street where the patient was getting them stopped offering this option and unbeknownst to her, the patient stopped getting the injections about 9 months ago. The patient has not been on any meds since. He does admit to using meth sometime within the last week. He does not know how often he uses drugs but states "sometimes". The friend states that she thinks the patient would like to go to an inpatient facility, though the patient does not bring this up himself until prompted to do so by the friend. He denies any suicidal or homicidal ideation. He states that the voices are saying unpleasant things to him.The patient is currently homeless and living in his car. The friend found him at [id number] today, where he has been parked for the last 3 days. She states she thinks he was normal about 6 days ago when she saw him last and seems worse than usual today. Review of Systems Ten Systems: 10 systems reviewed and negative Constitutional: reports: Reviewed and negative Eyes: reports: Reviewed and negative Ears: reports: Reviewed and negative Nose: reports: Reviewed and negative Throat: reports: Reviewed and negative Cardiac: reports: Reviewed and negative Respiratory: reports: Reviewed and negative GI: reports: Reviewed and negative : reports: Reviewed and negative Skin: reports: Reviewed and negative Musculoskeletal: reports: Reviewed and negative Neurologic: reports: Reviewed and negative Psychiatric: reports: Hallucinations, Delusions. denies: Suicidal, Homicidal Endocrine: reports: Reviewed and negative Immunocompromised: reports: Reviewed and negative PD PAST MEDICAL HISTORY - Past Medical History Cardiovascular: Pulmonary embolism Respiratory: Pneumonia Neuro: None Endocrine/Autoimmune: None GI: Hepatitis : None HEENT: Other Psych: Bipolar disorder, Schizophrenia Musculoskeletal: None Derm: None - Past Surgical History Past Surgical History: No - Present Medications Home Medications: Ambulatory Orders Medication Instructions Recorded Confirmed traZODone [Desyrel] 150 mg PO HS 09/10/17 12/06/21 Paliperidone Palmitate [Invega 156 mg IM ONCE 05/25/19 12/06/21 Sustenna] Rivaroxaban [Xarelto] 20 mg PO DAILY 03/18/20 03/18/20 Benzonatate [Tessalon] 200 mg PO TID PRN #30 cap 12/06/21 - Allergies Allergies/Adverse Reactions: Allergies Allergy/AdvReac Type Severity Reaction Status Date / Time shellfish derived Allergy Unknown Verified 03/07/22 12:21 - Social History Does the pt smoke?: Yes Smoking Status: Current every day smoker Does the pt drink ETOH?: No Does the pt have substance abuse?: Yes - Immunizations Immunizations are current?: Yes - POLST Patient has POLST: No PD ED PE NORMAL - Vitals Vital signs reviewed: Yes - General General: No acute distress, Well developed/nourished, Other (Somewhat disheveled) - HEENT HEENT: Atraumatic, PERRL, EOMI, Moist mucous membranes - Neck Neck: Supple, no meningeal sign - Cardiac Cardiac: RRR, No murmur - Respiratory Respiratory: No respiratory distress, Clear bilaterally - Abdomen Abdomen: Soft, Non tender, Non distended - Derm Derm: Normal color, Warm and dry, No rash - Extremities Extremities: No deformity - Neuro Neuro: Other (The patient is alert and does answer some questions. Neurologic exam physically is grossly intact.) - Psych Psych: Other (The patient is calm but seems tense. Frequently stares off, appears to be responding to internal stimuli. Talks about "who is over there" and says "don't you hear those voices?") Results - Vitals Vitals: Vital Signs - 24 hr 03/07/22 12:14 Temperature 36.8 C Heart Rate 110 H Respiratory 18 Rate Blood Pressure 136/87 H O2 Saturation 99 Oxygen O2 Source Room air - Labs Labs: Laboratory Tests 03/07/22 03/07/22 03/07/22 12:21 13:31 13:31 WBC 6.8 RBC 5.39 Hgb 16.8 Hct 48.6 MCV 90.2 MCH 31.2 H MCHC 34.6 RDW 12.6 Plt Count 280 MPV 10.7 Neut # (Auto) 4.5 Lymph # (Auto) 1.6 [place] # (Auto) 0.6 Eos # (Auto) 0.0 Baso # (Auto) 0.0 Absolute Nucleated RBC 0.00 Nucleated RBC % 0.0 Sodium 137 Potassium 3.8 Chloride 102 Carbon Dioxide 26 Anion Gap 9.0 BUN 11 Creatinine 0.7 Estimated GFR (MDRD) 124 Glucose 113 H Calcium 9.6 Magnesium Total Bilirubin 1.1 H AST 16 ALT 16 Alkaline Phosphatase 74 Total Creatine Kinase Total Protein 8.1 Albumin 4.3 Globulin 3.8 Albumin/Globulin Ratio 1.1 Lipase 37 Urine Opiates Screen NEGATIVE Ur Oxycodone Screen NEGATIVE Urine Methadone Screen NEGATIVE Ur Propoxyphene Screen NEGATIVE Ur Barbiturates Screen NEGATIVE Ur Tricyclics Screen NEGATIVE Ur Phencyclidine Scrn NEGATIVE Ur Amphetamine Screen POSITIVE H U Methamphetamines Scrn POSITIVE H U Benzodiazepines Scrn NEGATIVE Urine Cocaine Screen NEGATIVE U Cannabinoids Screen POSITIVE H Ethyl Alcohol < 5.0 SARS-CoV-2 (PCR) 03/07/22 03/07/22 13:31 13:47 WBC RBC Hgb Hct MCV MCH MCHC RDW Plt Count MPV Neut # (Auto) Lymph # (Auto) [place] # (Auto) Eos # (Auto) Baso # (Auto) Absolute Nucleated RBC Nucleated RBC % Sodium Potassium Chloride Carbon Dioxide Anion Gap BUN Creatinine Estimated GFR (MDRD) Glucose Calcium Magnesium 2.1 Total Bilirubin AST ALT Alkaline Phosphatase Total Creatine Kinase 70 Total Protein Albumin Globulin Albumin/Globulin Ratio Lipase Urine Opiates Screen Ur Oxycodone Screen Urine Methadone Screen Ur Propoxyphene Screen Ur Barbiturates Screen Ur Tricyclics Screen Ur Phencyclidine Scrn Ur Amphetamine Screen U Methamphetamines Scrn U Benzodiazepines Scrn Urine Cocaine Screen U Cannabinoids Screen Ethyl Alcohol SARS-CoV-2 (PCR) NOT DETECTED PD Medical Decision Making - ED course Complexity details: reviewed results, re-evaluated patient, considered differential, d/w patient ED course: We did obtain urine drug screen, alcohol level, CBC, ER abdominal panel, and COVID test, all of which were reviewed by me for medical clearance. child welfare social worker was consulted. The labs and studies were reviewed by myself and found to be as follows: Drug screen positive for amphetamines and marijuana; alcohol level negative; CBC unremarkable with normal white count and hemoglobin; ER abdominal panel with normal electrolytes and kidney function, as well as blood glucose; COVID test negative. At this point in time, the patient is being considered by several facilities for inpatient management and we are in the midst of waiting to hear from them. Patient signed out to Dr. Webber at change of shift, pending final disposition
[2022-03-07 13:48] LABS: ALBUMIN 4.3 g/dL (3.2-5.5); ALBUMIN/GLOBULIN RATIO 1.1 (1.0-2.2); ALKALINE PHOSPHATASE 74 IU/L (42-121); ALT ALANINE AMINOTRANSFERASE 16 IU/L (10-60); AST ASPARTATE AMINOTRANSFERASE 16 IU/L (10-42); BILIRUBIN,TOTAL 1.1 mg/dL (0.2-1.0); BUN - BLOOD UREA NITROGEN 11 mg/dL (6-20); CALCIUM 9.6 mg/dL (8.5-10.3); CARBON DIOXIDE - CO2 26 mmol/L (21-32); CHLORIDE 102 mmol/L (101-111); CREATININE 0.7 mg/dL (0.6-1.2); ETOH - ETHANOL < 5.0 mg/dL; GFR - MDRD 124 (>89); GLUCOSE 113 mg/dL (70-100); LIPASE 37 U/L (22-51); POTASSIUM 3.8 mmol/L (3.5-5.0); SODIUM 137 mmol/L (135-145); TOTAL PROTEIN 8.1 g/dL (6.7-8.2)
[2022-03-07 13:49] LABS: AMPHETAMINE SCREEN,URINE POSITIVE (NEGATIVE); BARBITURATE SCREEN,UR NEGATIVE (NEGATIVE); BENZODIAZEPINES SCREEN, URINE NEGATIVE (NEGATIVE); COCAINE SCREEN URINE NEGATIVE (NEGATIVE); METHADONE SCREEN, URINE NEGATIVE (NEGATIVE); METHAMPHETAMINES SCREEN, URINE POSITIVE (NEGATIVE); OPIATE SCREEN, URINE NEGATIVE (NEGATIVE); OXYCODONE SCREEN, URINE NEGATIVE (NEGATIVE); PROPOXYPHENE SCREEN, URINE NEGATIVE (NEGATIVE); THC CANNABINOID SCREEN, URINE POSITIVE (NEGATIVE); TRICYCLIC ANTIDEPRESSANT,URINE NEGATIVE (NEGATIVE)
[2022-03-07 17:31] LABS: MAGNESIUM 2.1 mg/dL (1.7-2.8)
[2022-03-07 18:01] LABS: BILIRUBIN,URINE NEGATIVE (NEGATIVE); GLUCOSE, URINE (UA) NEGATIVE (NEGATIVE); KETONES,URINE (UA) 15 mg/dL (NEGATIVE); LEUKOCYTE ESTERASE, URINE NEGATIVE (NEGATIVE); NITRITE,URINE NEGATIVE (NEGATIVE); OCCULT BLOOD,URINE NEGATIVE (NEGATIVE); PH,URINE 6.5 PH (5.0-7.5); PROTEIN,URINE NEGATIVE (NEGATIVE); UROBILINOGEN,URINE 0.2 (NORMAL) E.U./dL (NORMAL)
[2022-03-07 18:12] LABS: CLARITY,URINE CLEAR (CLEAR)
[2022-03-07 18:37] VITALS: BP 112/67
--- NOTE | 2022-03-07 21:14 | ED Physician Documentation ---
ED Addendum - Addendum Addendum: 03/07/22 21:14 Signed out to me by Dr. Hastings. Subsequently he has at this time and accepted to [facility] behavioral unit by Dr. Rivera. Disposition: Transfer to psychiatric facility Condition: Stable
[2022-03-07] MEDS ORDERED: OLANZapine ODT 5 MG TABLET TL SCH (23:45)
== END 2022-03-08 02:25 ==
LOC: ED 12:11
DX: F20.9 Schizophrenia, unspecified (principal); F15.10 Other stimulant abuse, uncomplicated; F17.200 Nicotine dependence, unspecified, uncomplicated; Z20.822 Contact with and (suspected) exposure to COVID-19; Z59.02 Unsheltered homelessness
CPT/HCPCS: 36415; 80053; 80306; 80320; 81003; 82550; 83690; 83735; 84443; 85025; 87635; 93005; 99285; A9270; 81001; 87086

== ENCOUNTER 2022-08-24 15:44 | Emergency (ER) | payer MEDICAID ==
[2022-08-24 16:11] VITALS: BP 122/86
--- NOTE | 2022-08-24 18:14 | ED Physician Documentation ---
PD HPI MHE - Stated complaint Stated Complaint: MHE - Chief complaint Chief Complaint: MHE - History obtained from History obtained from: Patient - History of Present Illness Primary symptom: Off meds - Additional information Additional information: Patient is a 42-year-old male who presents to the emergency department stating that he has been off his Invega and cannot see his new psychiatrist for a month. He is requesting oral medication to get him through the next month. He states Zyprexa has helped in the past. Not having hallucinations. Not suicidal or homicidal. Patient otherwise asymptomatic. Review of Systems Constitutional: denies: Fever, Chills GI: denies: Vomiting, Diarrhea Skin: denies: Rash Musculoskeletal: denies: Neck pain, Back pain Neurologic: denies: Headache PD PAST MEDICAL HISTORY - Past Medical History Cardiovascular: Pulmonary embolism Respiratory: Pneumonia Neuro: None Endocrine/Autoimmune: None GI: Hepatitis : None HEENT: Other Psych: Bipolar disorder, Schizophrenia Musculoskeletal: None Derm: None - Past Surgical History Past Surgical History: No - Present Medications Home Medications: Ambulatory Orders Medication Instructions Recorded Confirmed Paliperidone Palmitate [Invega 156 mg IM ONCE 05/25/19 08/24/22 Sustenna] Rivaroxaban [Xarelto] 20 mg PO DAILY 03/18/20 08/24/22 OLANZapine ODT [Zyprexa Odt] 5 mg TL DAILY #30 tablet 08/24/22 - Allergies Allergies/Adverse Reactions: Allergies Allergy/AdvReac Type Severity Reaction Status Date / Time shellfish derived Allergy Unknown Verified 08/24/22 16:10 - Social History Does the pt smoke?: Yes Smoking Status: Current every day smoker Does the pt drink ETOH?: No Does the pt have substance abuse?: Yes - Immunizations Immunizations are current?: Yes - POLST Patient has POLST: No PD ED PE NORMAL - Vitals Vital signs reviewed: Yes - General General: Alert and oriented X 3, No acute distress - HEENT HEENT: PERRL, Moist mucous membranes - Neck Neck: Supple, no meningeal sign - Cardiac Cardiac: RRR - Respiratory Respiratory: No respiratory distress, Clear bilaterally - Abdomen Abdomen: Soft, Non tender, Non distended - Derm Derm: Warm and dry - Neuro Neuro: Alert and oriented X 3 - Psych Psych: Normal mood, Normal affect Results - Vitals Vitals: Vital Signs - 24 hr 08/24/22 15:59 Temperature 37 C Heart Rate 85 Respiratory 16 Rate Blood Pressure 122/86 H O2 Saturation 99 Oxygen O2 Source Room air PD Medical Decision Making - ED course Complexity details: considered differential, d/w patient ED course: Patient would like to be placed on Zyprexa orally daily until he can be seen by his psychiatrist. We will prescribe Zyprexa for him. He states he has taken this in the past without difficulty. No Invega is available here. Not suicidal or homicidal. Not actively hallucinating. Patient counseled regarding signs and symptoms for which I believe and urgent re-evaluation would be necessary. Patient with good understanding of and agreement to plan and is comfortable going home at this time This document was made in part using voice recognition software. While efforts are made to proofread this document, sound alike and grammatical errors may occur. Departure - Departure Disposition: 01 Home, Self Care Clinical Impression: Schizophrenia Qualifiers: Schizophrenia type: unspecified Qualified Code(s): F20.9 - Schizophrenia, uns pecified Condition: Good Instructions: ED Schizophrenia General Follow-Up: Primary/Walk In [place] [Provider Group] [facility] [place] [Provider Group] [facility] [Provider Group] [facility] [Provider Group] Prescriptions: OLANZapine ODT [Zyprexa Odt] 5 mg TL DAILY #30 tablet Comments: [email or web address] [place]. Please take the medication as prescribed. Follow-up with your psychiatrist for further care. Return if you worsen. Discharge Date/Time: 08/24/22 18:31
== END 2022-08-24 18:31 | disposition home or self-care (01) ==
LOC: ED 15:44
DX: F20.9 Schizophrenia, unspecified (principal); F17.200 Nicotine dependence, unspecified, uncomplicated
CPT/HCPCS: 99281; 99282

== ENCOUNTER 2022-11-04 06:37 | Emergency (ER) | payer MEDICAID ==
[2022-11-04 07:02] VITALS: BP 119/79; O2SAT 100
--- NOTE | 2022-11-04 07:26 | ED Physician Documentation ---
PD HPI UPPER EXT INJURY - Stated complaint Stated Complaint: MHE - Chief complaint Chief Complaint: MHE - History obtained from History obtained from: Patient PD PAST MEDICAL HISTORY - Past Medical History Cardiovascular: Pulmonary embolism Respiratory: Pneumonia Neuro: None Endocrine/Autoimmune: None GI: Hepatitis : None HEENT: Other Psych: Bipolar disorder, Schizophrenia Musculoskeletal: None Derm: None - Past Surgical History Past Surgical History: No - Present Medications Home Medications: Ambulatory Orders Medication Instructions Recorded Confirmed Paliperidone Palmitate [Invega 156 mg IM ONCE 05/25/19 11/04/22 Sustenna] Rivaroxaban [Xarelto] 20 mg PO DAILY 03/18/20 11/04/22 OLANZapine ODT [Zyprexa Odt] 5 mg TL DAILY #30 tablet 08/24/22 11/04/22 - Allergies Allergies/Adverse Reactions: Allergies Allergy/AdvReac Type Severity Reaction Status Date / Time shellfish derived Allergy Unknown Verified 11/04/22 06:55 - Social History Does the pt smoke?: Yes Smoking Status: Current every day smoker Does the pt drink ETOH?: No Does the pt have substance abuse?: Yes - Immunizations Immunizations are current?: Yes - POLST Patient has POLST: No Results - Vitals Vitals: Vital Signs - 24 hr 11/04/22 06:48 Temperature 36.6 C Heart Rate 76 Respiratory 16 Rate Blood Pressure 119/79 O2 Saturation 100 Oxygen O2 Source Room air Departure - Departure Forms: PCP List
== END 2022-11-04 07:34 | disposition left against medical advice (07) ==
LOC: ED 06:37
DX: Z53.21 Procedure and treatment not carried out due to patient leaving prior to being seen by health care provider (principal)